=== PATIENT | male | born 1955 | race African-American/Black ===

== ENCOUNTER 2021-10-12 14:06 | Observation (INO) | payer OTHER, SELFPAY ==
[2021-10-12] VITALS (11 sets, daily range): BP systolic 83–176; BP diastolic 55–106; PULSE 62–78; RESP 11–21; TEMP 36.3–36.9; O2SAT 94–100; BMI 21.5
--- NOTE | 2021-10-12 14:30 | DI.CT_ITS ---
Exam(s) CT ABDOMEN PELVIS W EXAM: CT ABDOMEN PELVIS W CLINICAL HISTORY: Left Inguinal hernia, R/O incarceration TECHNIQUE: Imaging Protocol: Axial computed tomography images with coronal and sagittal reformatted images were created and reviewed CONTRAST MATERIAL: Intravenous: Omnipaque 350ml Contrast volume:100 mL Oral: No COMPARISON: No exams were available for comparison FINDINGS: ABDOMEN: Lung Bases: Normal where visualized. Liver: Normal density. No measurable mass. The liver has a lobulated contour suggesting hepatic cirrh osis. The liver measures 18 cm long. Portal, Superior Mesenteric, and Splenic Veins: Unremarkable. Gallbladder and Biliary Tract: There is cholelithiasis present. The common duct measures 8 mm. Pancreas: Normal density, no abnormal calcifications or inflammatory process. Spleen: Normal. Adrenals: No masses seen. Kidneys: Normal size, contour and axis. No radiodense stones or obstructive uropathy. There are tiny hypodensities in the right kidney. They are too small for further characterization but likely reflec t small cysts. Abdominal Aorta: Abdominal portion non-dilated. Atherosclerosis is present. Bowel: There is a left inguinal hernia containing a loop of small bowel. The small bowel proximally is dilated suggesting obstruction. The small bowel distal to the hernia is of normal caliber. The f indings are consistent to of small bowel obstruction. There is mild infiltration in the surrounding fat at the level of the hernia with a small amount of fluid within the hernia sac. Appendix is unrem arkable. Peritoneal Cavity: There is a small amount of perihepatic ascites. No free air. Lymph Nodes: Within normal limits. Bones: Within normal limits for the patient's age. Soft Tissues: There is a small fat containing umbilical hernia. PELVIS: Bladder: Symmetric distention, no gross wall thickening. Reproductive Organs: Unremarkable as visualized. Lymph Nodes: Within normal limits. Bones: Within normal limits for the patient's age. IMPRESSION: 1. There is a left inguinal hernia containing a loop of mid to distal small bowel. There is findings consistent with a small-bowel obstruction with dilatation of the small bowel loops proximal to the h ernia. Mild infiltration of the soft tissues around the hernia sac suggest early or mild strangulati on of the small bowel. 2. Cholelithiasis. No evidence to suggest acute cholecystitis. Mild intra and extrahepatic biliary ductal dilatation without definite stone or pancreatic lesion. MRCP may be considered for further ev aluation. RADIATION DOSE DELIVERED: 684.96mGy.cm Total DLP DATA REPOSITORY: All CT scans at this facility are submitted to the National Radiology Data Registry (NRDR) Dose Index Registry (DIR) with the [employer] (ACR). RADIATION OPTIMIZATION: All CT scans at this facility use at least one of these dose optimization te chniques: automated exposure control; mA and/or kV adjustment per patient size (includes targeted exa ms where dose is matched to clinical indication); or iterative reconstruction.
--- NOTE | 2021-10-12 14:34 | ED.GENADUL_ITS ---
Discharge Plan Disposition Patient Disposition: [facility] INPATIENT Condition: Serious Discharge Details Clinical Impression: Incarcerated left inguinal hernia Admit Date/Time: 10/12/21 20:33 Admit Provider: Ashkan Fregoso Attending Provider: Ashkan Fregoso Primary Care Provider: Dave aMx ED Provider: Leif Brower Discharge Data Discharge Date/Time-TO BE ENTERED AT DEPARTURE: 10/12/21 21:11 Medical Decision Making <Lilian Whitaker NP - Last Filed: 10/12/21 16:17> 65-year-old male presents to the ER accompanied by law enforcement with chief complaint of left lower groin pain and abdominal pain. Patient reports that he was climbing up onto the top bunk this morning when he felt a left inguinal hernia protrude he reports that he has been unable to reduce it. This has happened before and he usually is able to reduce the hernia. He denies any trouble urinating did have a bowel movement after current no blood or hematochezia reported. He does endorse nausea and pain. No vomiting. He denies any recent trauma to the abdomen or falls. Patient has a past medical history of HIV, psoriasis. CBC, CMP, lactate, urinalysis IV morphine and Zofran ordered. CT abdomen pelvis with IV contrast ordered to rule out incarcerated hernia. Patient placed in Trendelenburg position and ice pack placed over the hernia by balance staff staker to attempt self reduction. Will reevaluate approximately 30 minutes. Care is to be handed off to oncoming provider DILLON Redmond pending CT abdomen pelvis and disposition. Lab Data Lab results reviewed: Yes I reviewed the patient's lab results. Labs: Laboratory Tests Range/Units 10/12/21 10/12/21 10/12/21 14:53 14:53 14:53 WBC Cancelled RBC Cancelled Hgb Cancelled Hct Cancelled MCV Cancelled MCH Cancelled MCHC Cancelled RDW Cancelled Plt Count Cancelled MPV Cancelled Immature Gran % Cancelled Neutrophils % Cancelled Band Neutrophils % Cancelled Lymphocytes % Cancelled Atypical Lymphs % Cancelled Monocytes % Cancelled Eosinophils % Cancelled Basophils % Cancelled Metamyelocytes % Cancelled Myelocytes % Cancelled Promyelocytes % Cancelled Other Cells % Cancelled Nucleated RBC % Cancelled Absolute Neutrophils Cancelled Absolute Lymphocytes Cancelled Absolute Monocytes Cancelled Absolute Eosinophils Cancelled Absolute Basophils Cancelled RBC Morphology Cancelled Polychromasia Cancelled Hypochromasia Cancelled Poikilocytosis Cancelled Basophilic Stippling Cancelled Anisocytosis Cancelled Microcytosis Cancelled Macrocytosis Cancelled Spherocytes Cancelled Tear Drop Cells Cancelled Ovalocytes Cancelled Stomatocytes Cancelled [place] Bodies Cancelled [place] Cells/Echinocytes Cancelled Acanthocytes (Spur) Cancelled Schistocytes Cancelled VBG Lactate (0.6-1.4) mmol/L 1.0 Sodium (136-145) mmol/L 143 Potassium (3.5-5.1) mmol/L 3.6 Chloride (98-107) mmol/L 101 Carbon Dioxide (21.0-32.0) mmol/L 30.2 Anion Gap (3-11) mmol/L 11.8 H BUN (7-18) mg/dL 7 Creatinine (0.70-1.30) mg/dL 0.7 Estimated GFR/1.73 m2 (mL/min/1.73m2) >= 60.00 Glucose (74-106) mg/dL 114 H Calcium (8.5-10.1) mg/dL 10.2 H Magnesium (1.8-2.4) mg/dL 2.2 Total Bilirubin (0.2-1.0) mg/dL 0.7 AST (15-37) U/L 40 H ALT (16-63) U/L 36 Alkaline Phosphatase (46-116) U/L 234 H Total Protein (6.4-8.2) g/dL 10.9 H Albumin (3.4-5.0) g/dL 4.6 Range/Units 10/12/21 15:05 WBC 10.29 RBC 5.42 Hgb 14.7 Hct 44.8 MCV 83 MCH 27.1 MCHC 32.8 RDW 16.4 H Plt Count 211 MPV 11.6 H Immature Gran % 0.4 Neutrophils % 65.0 Band Neutrophils % Lymphocytes % 26.1 Atypical Lymphs % Monocytes % 7.1 Eosinophils % 1.0 Basophils % 0.4 Metamyelocytes % Myelocytes % Promyelocytes % Other Cells % Nucleated RBC % 0.0 Absolute Neutrophils 6.69 Absolute Lymphocytes 2.69 Absolute Monocytes 0.73 Absolute Eosinophils 0.10 Absolute Basophils 0.04 RBC Morphology Polychromasia Hypochromasia Poikilocytosis Basophilic Stippling Anisocytosis Microcytosis Macrocytosis Spherocytes Tear Drop Cells Ovalocytes Stomatocytes [place] Bodies [place] Cells/Echinocytes Acanthocytes (Spur) Schistocytes VBG Lactate (0.6-1.4) mmol/L Sodium (136-145) mmol/L Potassium (3.5-5.1) mmol/L Chloride (98-107) mmol/L Carbon Dioxide (21.0-32.0) mmol/L Anion Gap (3-11) mmol/L BUN (7-18) mg/dL Creatinine (0.70-1.30) mg/dL Estimated GFR/1.73 m2 (mL/min/1.73m2) Glucose (74-106) mg/dL Calcium (8.5-10.1) mg/dL Magnesium (1.8-2.4) mg/dL Total Bilirubin (0.2-1.0) mg/dL AST (15-37) U/L ALT (16-63) U/L Alkaline Phosphatase (46-116) U/L Total Protein (6.4-8.2) g/dL Albumin (3.4-5.0) g/dL HPI <Lilian Whitaker NP - Last Filed: 10/12/21 16:17> General Mode of arrival: wheelchair . Date/Time Provider Initiated Documentation: 10/12/21 14:11 . Limitations to Documentation: no limitations . Information obtained by: patient, police (Pt arrives in police custody) and RN notes reviewed . HPI Narrative: 65-year-old male presents to the ER accompanied by law enforcement with chief complaint of left lower groin pain and abdominal pain. Patient reports that he was climbing up onto the top bunk this morning when he felt a left inguinal hernia protrude he reports that he has been unable to reduce it. This has happened before and he usually is able to reduce the hernia. He denies any trouble urinating did have a bowel movement after current no blood or hematochezia reported. He does endorse nausea and pain. No vomiting. He denies any recent trauma to the abdomen or falls. Patient has a past medical history of HIV, psoriasis. Related Data Home Medications Medication Instructions Recorded Confirmed emtricitabine 200 mg-rilpivirine 1 tab PO DAILY 10/12/21 10/12/21 25 mg-tenofovir alafenam 25 mg tablet (Odefsey) Allergies Allergy/AdvReac Type Severity Reaction Status Date / Time Penicillins Allergy Unverified 10/12/21 14:18 General Stated Complaint: Abd Prob YOON: 3 <DILLON Redmond - Last Filed: 10/12/21 19:19> HPI Narrative: 65-year-old male presents to the ER accompanied by law enforcement with chief complaint of left lower groin pain and abdominal pain. Patient reports that he was climbing up onto the top bunk this morning when he felt a left inguinal hernia protrude he reports that he has been unable to reduce it. This has happened before and he usually is able to reduce the hernia. He denies any trouble urinating did have a bowel movement after current no blood or hematochezia reported. He does endorse nausea and pain. No vomiting. He denies any recent trauma to the abdomen or falls. Patient has a past medical history of HIV, psoriasis. LB: Accepted from [facility] pending CT scan and lab and manual reduction of inguinal hernia I initially entered the room and administered IV analgesia and the patient requested an attempt to reduce hernia himself as he is done in the past He was unsuccessful and his pain returned, therefore additional analgesia was ordered Patient subsequently requested that male provider for the remainder of his assessment and therefore care was transferred to Dr. Leif Brower at this time, please see his documentation Review of Systems <Lilian Whitaker NP - Last Filed: 10/12/21 16:17> All systems reviewed & are unremarkable except as noted in HPI and below Constitutional Constitutional: Reports as per HPI, Denies chills and Denies fever(s) Cardiovascular Cardiovascular: Denies chest pain and Denies dyspnea Respiratory Respiratory: Denies dyspnea Gastrointestinal Gastrointestinal: Reports abdominal pain, Denies melena, Denies hematochezia, Denies change in bowel habits, Denies diarrhea, Reports nausea, Denies vomiting and Reports other (Inguinal left groin mass palpated tender with palpation.) Genitourinary Genitourinary: Reports as per HPI, Reports genital pain and Denies dysuria PFS <Lilian Whitaker NP - Last Filed: 10/12/21 16:17> All Active Problems (Updated 10/13/21 @ 19:47 by Fernando Pappas MD) History of intravenous drug abuse (Acute) Aortic valve cusp abnormality (Acute) Narrow complex tachycardia (Acute) Elevated troponin (Acute) History of ETOH abuse (Acute) Smoker unmotivated to quit (Acute) Atherosclerosis (Acute) Methadone maintenance therapy patient (Acute) Edentulous (Acute) Umbilical hernia (Acute) Gallstones (Acute) Cirrhosis of liver (Acute) Incarcerated left inguinal hernia (Acute) Medical History HIV (human immunodeficiency virus infection) Social History Smoking/Tobacco Use Status: Current every day Tobacco Type: cigarettes Smoking risk assessment performed?: Yes Alcohol Intake: former Drug use: Never Substance use type: does not use Exam <Lilian Whitaker NP - Last Filed: 10/12/21 16:17> Narrative Exam Narrative: Constitutional: Alert and oriented x3. Appears stated age. Normal body habitus. Head: Normocephalic, no trauma. Eyes: Pupils PERRL, Red reflex noted, EOM's intact. Eyelids symmetrical without lesions, discharge, or swelling. ENT: Bilateral TM's WNL, External ear normal to inspection, no mastoid TTP, swelling, or erythema, Nasal turbinates WNL, no nasal discharge. Normal dentition, Posterior pharynx WNL, no exudate. Chest: RRR, Normal S1, S2, distal pulses intact. Resp: Lungs clear to auscultation bilaterally, no wheezes, rales, or rhonchi. Abdomen: Soft, non-distended, Tenderness to LLQ : See below Skin: No suspicious rashes or lesions. Capillary refill less than 2 sec. Neurologic: Cranial nerves II-XII intact. Alert and oriented x 3. Motor: No deficits noted. Sensory: Intact bilaterally all 4 extremities. Reflexes: DTR's intact bilaterally.. Hematologic/Lymphatic: No ecchymosis, no lymphadenopathy. GI Inspection: normal to inspection, no abdominal wall ecchymosis, non-distended, no large pannus and no obesity Palpation: soft, no guarding and hernia direct inguinal on the left Male General Exam: Yes hernia (Large left inguinal hernia, hard and tender with palpation) and Yes tenderness Course <Lilian Whitaker NP - Last Filed: 10/12/21 16:17> Vital Signs Vital signs: Vital Signs Temperature 36.6 C 10/12/21 14:10 Pulse 62 10/12/21 14:10 Respiratory Rate 18 10/12/21 14:10 Blood Pressure 176/106 H 10/12/21 14:10 Pulse Oximetry 100 10/12/21 14:10 Temperature 36.6 C 10/12/21 14:10 Temperature Source Temporal Artery Scan 10/12/21 14:10 Pulse 62 10/12/21 14:10 Respiratory Rate 18 10/12/21 14:10 Respiratory Effort Non-Labored 10/12/21 14:20 Blood Pressure 176/106 H 10/12/21 14:10 Blood Pressure Position Sitting 10/12/21 14:10 Pulse Oximetry 100 10/12/21 14:10 Oxygen Delivery Method Room Air 10/12/21 14:10 Oxygen Flow Rate 0 10/12/21 14:10 Pain Level 10 10/12/21 14:29 Sign Out <Lilian Whitaker NP - Last Filed: 10/12/21 16:17> Sign Out Data: Sign Out Comment: Left Inguinal Hernia. CT ordered to Rule out incarceration. [facility] a [facility] Law enforcement at . Given Morphine 4mg IV and Zofran 4mg IV Last updated by Lilian Whitaker NP at 10/12/21 15:33
[2021-10-12] MEDS: Ondansetron 4 MG/2 ML VIAL IVP (15:08)
[2021-10-12] MEDS: MORPHine 10 MG/ML VIAL 4 MG IVP (15:08)
[2021-10-12 15:16] LABS: Abs Immature Grans 0.04 10^3/uL (0.0-0.06); Absolute Basophil Count 0.04 10^3/uL (0.0-0.2); Absolute Lymphocyte Count 2.69 10^3/uL (1.2-3.4); Absolute Monocyte Count 0.73 10^3/uL (0.1-0.8); Absolute Neutrophil Count 6.69 10^3/uL (1.2-6.7); Basophils % 0.4; HCT 44.8 % (40.0-50.0); HGB 14.7 g/dL (13.5-17.5); Immature Grans % 0.4; Lymphocytes % 26.1; MCH 27.1 pg (27.0-33.0); MCHC 32.8 % (32.0-36.0); MCV 83 fL (80-95); MPV 11.6 fL (8.0-11.0); Monocytes % 7.1; Platelet Count 211 10^3/uL (130-400); RBC 5.42 10^6/uL (4.36-5.78); RDW 16.4 % (11.8-14.1); RDW-SD 48.9 fL; WBC 10.29 10^3/uL (4.4-10.8)
[2021-10-12 15:27] LABS: ALT 36 U/L (16-63); AST 40 U/L (15-37); Albumin 4.6 g/dL (3.4-5.0); Alkaline Phosphatase 234 U/L (46-116); Anion Gap 11.8 mmol/L (3-11); BUN 7 mg/dL (7-18); Bilirubin, Total 0.7 mg/dL (0.2-1.0); CO2 30.2 mmol/L (21.0-32.0); CREATININE 0.7 mg/dL (0.70-1.30); Calcium 10.2 mg/dL (8.5-10.1); Chloride 101 mmol/L (98-107); Glucose 114 mg/dL (74-106); Magnesium 2.2 mg/dL (1.8-2.4); Potassium 3.6 mmol/L (3.5-5.1); Sodium 143 mmol/L (136-145); Total Protein 10.9 g/dL (6.4-8.2)
[2021-10-12] MEDS: HYDROmorphone 2 MG/ML VIAL IVP ×2 (15:44→16:00)
[2021-10-12] MEDS: Omnipaque 350 MG/ML 100 ML BTL IJ (16:52)
[2021-10-12] MEDS: Normal Saline Flush 10 ML SYR IVP (16:53)
[2021-10-12 16:55] LABS: Bilirubin Negative (Negative); Blood Negative (Negative); Clarity Cloudy (Clear); Glucose Negative (Negative); Ketones Negative (Negative); Leukocyte Esterase Negative (Negative); Nitrite Negative (Negative); Specific Gravity 1.025 (1.005-1.025); Urobilinogen 0.2 EU/dL (Up TO 0.2); pH 7.5 (5-8)
--- NOTE | 2021-10-12 17:38 | DI.VRAD_ITS ---
PROCEDURE INFORMATION: Exam: CT Abdomen And Pelvis With Contrast Exam date and time: 10/12/2021 4:40 PM Age: 65 years old Clinical indication: Other: Left inguinal hernia R/O incarceration TECHNIQUE: Imaging protocol: Computed tomography of the abdomen and pelvis with contrast. Radiation optimization: All CT scans at this facility use at least one of these dose optimization techniques: automated exposure control; mA and/or kV adjustment per patient size (includes targeted exams where dose is matched to clinical indication); or iterative reconstruction. Contrast material: OMNIPAQUE 350; Contrast volume: 100 ml; Contrast route: INTRAVENOUS (IV); COMPARISON: No relevant prior studies available. FINDINGS: Lungs: There are regions of mild scarring/atelectasis within the lung bases. Liver: The liver serosal surface appears lobular in some regions suggesting cirrhosis. No focal liver lesions are identified. Gallbladder and bile ducts: There are 2 gallstones in the region of the gallbladder neck and cystic duct, the larger measuring 5 mm. There is mild intra and extrahepatic biliary ductal dilatation to the level of the ampulla, with the common bile duct measuring up to 9 mm diameter and mild central intrahepatic biliary ductal dilatation. There is no defined distal common bile duct stone or lesion. Pancreas: The pancreas is moderately atrophic but appears otherwise unremarkable without focal lesion or evidence of acute inflammation. Spleen: Normal. No splenomegaly. Adrenal glands: Normal. No mass. Kidneys and ureters: There appears to be some degree of malrotation the kidney. There are multiple subcentimeter low-dense renal lesions which are too small to characterize but likely represent benign cysts. No renal or ureteral stones are identified. There is no hydronephrosis or hydroureter. Stomach and bowel: Findings suggest possible mild edematous wall thickening of the lower rectum. There is mild dilatation of numerous loops small bowel proximal to the hernia sac measuring up to 2.8 cm diameter, and the loops of small bowel distal to the hernia sac are collapsed, consistent with partial small bowel obstruction at the level of the hernia. Appendix: No evidence of appendicitis. Intraperitoneal space: There is tiny amount ascites in the right upper quadrant of the abdomen. There is no free intraperitoneal air. Vasculature: The aorta and iliac arteries demonstrate moderate atherosclerotic calcification without aneurysm formation. Lymph nodes: Unremarkable. No enlarged lymph nodes. Urinary bladder: No bladder stones are identified. Reproductive: Unremarkable as visualized. Bones/joints: There is multilevel moderate facet arthrosis the lower lumbar spine as well as multilevel mild spondylosis. No acute fractures are. Soft tissues: There is a 2.6 x 4.0 x 5.5 cm left inguinal hernia which contains fat as well as a short loop of mid-distal small bowel. There is a small amount of fluid and mild fat stranding around the small bowel loop within the hernia sac and findings suggest mild wall thickening of this loop, which is suggestive of mild/early strangulation. Other findings: There is a 1.5 x 1.0 cm fat containing umbilical hernia. IMPRESSION: 1. Left inguinal hernia containing a short loop of mid-distal small bowel, as described above. There are findings suggesting early/mild strangulation of the small bowel loop within the hernia sac. There is also mild dilatation of numerous small bowel loops proximal to the hernia consistent with partial small bowel obstruction at the level of the hernia. 2. Gallstones. No clear evidence for acute cholecystitis. 3. Mild intra and extrahepatic biliary ductal dilatation to the level of the ampulla. No distal common bile duct stone or lesion is identified. Findings could reflect mild ampullary stenosis or sphincter of Oddi dysfunction. 4. Cannot exclude mild proctitis. Recommend clinical correlation. Findings were discussed with Dr. Brower at 10/12/2021 5:35 PM EDT. Dictated and Authenticated by: Arian Baird MD. Ordering:TEO Quintana MD
--- NOTE | 2021-10-12 18:03 | W.EDPROG ---
Date of service: 10/12/21 Time of Service: 18:03 Medical Decision Making 1800 --care signed out by TESHA Whitaker with plan to follow-up on CT and attempt to reduce hernia. CT of the abdomen pelvis was interpreted by radiology: IMPRESSION: 1. Left inguinal hernia containing a short loop of mid-distal small bowel, as described above. There are findings suggesting early/mild strangulation of the small bowel loop within the hernia sac. There is also mild dilatation of numerous small bowel loops proximal to the hernia consistent with partial small bowel obstruction at the level of the hernia. 2. Gallstones. No clear evidence for acute cholecystitis. 3. Mild intra and extrahepatic biliary ductal dilatation to the level of the ampulla. No distal common bile duct stone or lesion is identified. Findings could reflect mild ampullary stenosis or sphincter of Oddi dysfunction. 4. Cannot exclude mild proctitis. Recommend clinical correlation. Labs reviewed and nondiagnostic Patient has been unable to reduce the hernia himself. I attempted to reduce the hernia by applying direct manual pressure for prolonged period of time. Unable to reduce. 180 --I spoke with the general surgeon on-call, Dr. Walter, discussed ED presentation and course including diagnostic imaging results. He recommends placing the patient in Trendelenburg, applying ice and he will be in to evaluate the patient. -- Patient was seen by the surgeon with plan for the OR reduction. Sign Out Sign Out Data: Sign Out Comment: Left Inguinal Hernia. CT ordered to Rule out incarceration. Patient is a inmate at [facility], [employer] enforcement at [employer]. Given Morphine 4mg IV and Zofran 4mg IV Last updated by Lilian Whitaker NP at 10/12/21 15:33 Discharge Plan Disposition Patient Disposition: [facility] INPATIENT Condition: Serious Discharge Details Clinical Impression: Incarcerated left inguinal hernia Primary Care Provider: Dave Max ED Provider: Leif Brower Home Meds and New Rx's Prescriptions: No Action Odefsey 200-25-25 mg Tablet 1 tab PO DAILY Rx Instructions: must administer with a meal/food
--- NOTE | 2021-10-12 19:48 | ANES.PREOP_ITS ---
General Info Date of Service Date Performed: 10/12/21 Height: 5 ft 10 in Weight: 68.039 kg Body Mass Index (BMI): 21.5 Meds Allergies and Home Medications Allergies Allergy/AdvReac Type Severity Reaction Status Date / Time Penicillins Allergy Unverified 10/12/21 14:18 Home Medication Medication Instructions Recorded emtricitabine 200 mg-rilpivirine 1 tab PO DAILY 10/12/21 25 mg-tenofovir alafenam 25 mg tablet ([place]) Current Visit Medications: Current Medications Generic Name Dose Route Start Last Admin Trade Name Freq PRN Reason Stop Dose Admin Sodium Chloride 500 mls @ 0 mls/hr 10/12/21 14:30 Saline 500ml Bag IV PRN PRN As Directed IV Miscellaneous Supplies 1 each 10/12/21 14:30 Iv Access IV DIRECTED JOEL Iohexol 100 ml 10/12/21 17:00 10/12/21 16:52 Omnipaque 350 Mg/Ml 100 Ml Btl IJ 11/11/21 23:59 100 ml DIRECTED JOEL Administration Sodium Chloride 0 ml 10/12/21 14:30 10/12/21 16:53 Normal Saline Flush 10 Ml Syr IVP 10 ml PRN PRN Administration Sodium Chloride 50 ml 10/12/21 17:00 10/12/21 16:53 Normal Saline 250 Ml Bag IJ 50 ml DIRECTED JOEL Administration PFSH Active Problems Active Problems: Problem Status Onset Code Incarcerated left inguinal hernia K40.30 Medical History Medical History HIV (human immunodeficiency virus infection) Tobacco Smoking/Tobacco Use Status: Current every day Tobacco Type: cigarettes Alcohol Alcohol Intake: former Substance Use Substance use: Never Substance use type: does not use Vital Signs and Lab Results Vital Signs Most Recent Vital Signs in EMR: Most Recent Vital Signs Temp Pulse Resp BP Pulse Ox 36.8 C 70 18 159/86 H 99 10/12/21 18:47 10/12/21 18:47 10/12/21 18:47 10/12/21 18:47 10/12/21 18:47 Lab Results Result Diagrams: 10/12/21 15:05 10/12/21 14:53 Blood Type / Crossmatch: No Data to Display Complete Blood Count: White Blood Count 10.29 10^3/uL (4.4-10.8) 10/12/21 15:05 Red Blood Count 5.42 10^6/uL (4.36-5.78) 10/12/21 15:05 Hemoglobin 14.7 g/dL (13.5-17.5) 10/12/21 15:05 Hematocrit 44.8 % (40.0-50.0) 10/12/21 15:05 Platelet Count 211 10^3/uL (130-400) 10/12/21 15:05 Venous Blood Lactate 1.0 mmol/L (0.6-1.4) 10/12/21 14:53 Complete Metabolic Panel: Sodium Level 143 mmol/L (136-145) 10/12/21 14:53 Potassium Level 3.6 mmol/L (3.5-5.1) 10/12/21 14:53 Chloride Level 101 mmol/L (98-107) 10/12/21 14:53 Carbon Dioxide Level 30.2 mmol/L (21.0-32.0) 10/12/21 14:53 Blood Urea Nitrogen 7 mg/dL (7-18) 10/12/21 14:53 Creatinine 0.7 mg/dL (0.70-1.30) 10/12/21 14:53 Estimated GFR/1.73 m2 >= 60.00 (mL/min/1.73m2) 10/12/21 14:53 Magnesium Level 2.2 mg/dL (1.8-2.4) 10/12/21 14:53 Calcium Level 10.2 mg/dL (8.5-10.1) H 10/12/21 14:53 Albumin 4.6 g/dL (3.4-5.0) 10/12/21 14:53 Glucose Level 114 mg/dL (74-106) H 10/12/21 14:53 Liver Function Panel: Alanine Aminotransferase (ALT/SGPT) 36 U/L (16-63) 10/12/21 14: 53 Aspartate Amino Transf (AST/SGOT) 40 U/L (15-37) H 10/12/21 14: 53 Coagulation Panel: No Data to Display Cardiac Panel: No Data to Display Arterial Blood Gas: No Data to Display Venous Blood Gas: No Data to Display Pancreas Panel: No Data to Display Thyroid Panel: No Data to Display Infectious Disease: No Data to Display Blood Cultures: No Data to Display Toxicology Panel: No Data to Display Anesthesia Assessment and Plan Anesthesia History Personal History: No History of Anesthesia Complications Family History: No Family History of Anesthesia Complications Exercise Tolerance Exercise Tolerance: Metabolic Equivalents>4 Pertinent Negatives Pertinent Negatives: No Symptoms of GERD, No Major Cardiovascular Symptoms or Complaints, No Major Pulmonary Symptoms or Complaints and No History of CVA/TIA Cardiac & Pulmonary Exam Cardiac Exam: Normal S1/S2 Heart Sounds Pulmonary Exam: Clear Bilateral Breath Sounds Implantable Cardiac Device Does patient have a Pacemaker or an ICD?: No Airway Exam Known Difficult Airway: No Mallampati Class: 2 Mouth Opening: Normal (> 3cm) Thyromental Distance: Greater than 3 cm Neck Range of Motion: Full ROM Neck Circumference: Normal Teeth Condition: Removable Dentures/Plates Upper and Edentulous (lower) ASA Classification ASA Score: ASA 2 Emergency Case?: Yes NPO Status NPO Status: NPO Clears >2 hours, Solids >8 hours (noon) Anesthesia Plan Resuscitation Status: Full Code Anesthesia Technique: General Anesthesia Airway Planned: Endotracheal Tube Pain Management: Surgeon and patient request nerve block (TAP block for postope rative pain. Patient reports high tolerance to pain medicines. ) Monitors Used: Standard Monitors Preoperative Comments:: Patient reported liver dysfunction, however, then showed his legs having some discoloration and what appeared to be venous wounds. Patient wearing LAST hose. Patient denies heart problems, reports sleeping flat.
[2021-10-12] MEDS: HYDROmorphone 2 MG/ML VIAL (20:01)
[2021-10-12 20:04] LABS: Source Nasal/Nares
--- NOTE | 2021-10-12 20:19 | W.SURGCON ---
Date of service: 10/12/21 Time of Service: 20:00 Assessment and Plan Assessment and plan (1) Incarcerated left inguinal hernia: Status: Acute Assessment and plan: 65 yo man with incarcerated left inguinal hernia causing partial SBO and likely to become strangulated if not reduced. Operative reduction and then operative repair is indicated. I did d/w patient the risk of needing a small bowel resection if the bowel is not viable. I also talked with him about the low risk, but possiblity of recurrence, chronic pain and wound/mesh infections. He accepts these small risks and wishes to proceed with repair. Plan: Open inguinal hernia repair, possible bowel resection History of Present Illness Narrative: 65 yo man with hx of left groin hernia for quite some time presents from [facility] reporting 3 days of persistent and worsening groin pain. The hernia, which is usually able to be pushed back in, is stuck out. The pt usually pushes on it, but this time is unable to do get it back in. He denies nausea or vomiting. Just pain. He denies any prior surgery or trauma to the left groin area or abdomen. No significant medical history other than treated HIV. Daily smoker. [facility] Active Problems (Updated 10/12/21 @ 19:46 by Leif Brower MD) Incarcerated left inguinal hernia (Acute) Medical History HIV (human immunodeficiency virus infection) Social History Smoking/Tobacco Use Status: Current every day Tobacco Type: cigarettes Smoking risk assessment performed?: Yes Alcohol Intake: former Drug use: Never Substance use type: does not use Do you feel safe at home: Yes Do you feel safe in your relationship?: Yes Exam Narrative Exam Narrative: Gen: Nontoxic and comfortable and interactive Neuro: AxOx3 Psych: Appropriate mood and affect, good insight and understanding Abdomen: Soft, nondistended and nontender. Left groin examined and a painful, but soft bulge is present. It is not reducible. Results Last Vital Signs Temp 98.2 F 10/12/21 18:47 Pulse 70 10/12/21 18:47 Resp 18 10/12/21 18:47 BP 159/86 H 10/12/21 18:47 Pulse Ox 99 10/12/21 18:47 Labs Result diagrams: 10/12/21 15:05 10/12/21 14:53 Labs: Laboratory Results - last 24 hr 10/12/21 10/12/21 10/12/21 14:53 14:53 14:53 WBC Cancelled RBC Cancelled Hgb Cancelled Hct Cancelled MCV Cancelled MCH Cancelled MCHC Cancelled RDW Cancelled Plt Count Cancelled MPV Cancelled Immature Gran % Cancelled Neutrophils % Cancelled Band Neutrophils % Cancelled Lymphocytes % Cancelled Atypical Lymphs % Cancelled Monocytes % Cancelled Eosinophils % Cancelled Basophils % Cancelled Metamyelocytes % Cancelled Myelocytes % Cancelled Promyelocytes % Cancelled Other Cells % Cancelled Nucleated RBC % Cancelled Absolute Neutrophils Cancelled Absolute Lymphocytes Cancelled Absolute Monocytes Cancelled Absolute Eosinophils Cancelled Absolute Basophils Cancelled RBC Morphology Cancelled Polychromasia Cancelled Hypochromasia Cancelled Poikilocytosis Cancelled Basophilic Stippling Cancelled Anisocytosis Cancelled Microcytosis Cancelled Macrocytosis Cancelled Spherocytes Cancelled Tear Drop Cells Cancelled Ovalocytes Cancelled Stomatocytes Cancelled [place] Bodies Cancelled [place] Cells/Echinocytes Cancelled Acanthocytes (Spur) Cancelled Schistocytes Cancelled VBG Lactate 1.0 Sodium 143 Potassium 3.6 Chloride 101 Carbon Dioxide 30.2 Anion Gap 11.8 H BUN 7 Creatinine 0.7 Estimated GFR/1.73 m2 >= 60.00 Glucose 114 H Calcium 10.2 H Magnesium 2.2 Total Bilirubin 0.7 AST 40 H ALT 36 Alkaline Phosphatase 234 H Total Protein 10.9 H Albumin 4.6 Urine Color Urine Clarity Urine pH Ur Specific [place] Urine Protein Urine Ketones Urine Blood Urine Nitrite Urine Bilirubin Urine Urobilinogen Ur Leukocyte Esterase Urine Glucose COVID-19 Source 10/12/21 10/12/21 10/12/21 15:05 16:50 20:00 WBC 10.29 RBC 5.42 Hgb 14.7 Hct 44.8 MCV 83 MCH 27.1 MCHC 32.8 RDW 16.4 H Plt Count 211 MPV 11.6 H Immature Gran % 0.4 Neutrophils % 65.0 Band Neutrophils % Lymphocytes % 26.1 Atypical Lymphs % Monocytes % 7.1 Eosinophils % 1.0 Basophils % 0.4 Metamyelocytes % Myelocytes % Promyelocytes % Other Cells % Nucleated RBC % 0.0 Absolute Neutrophils 6.69 Absolute Lymphocytes 2.69 Absolute Monocytes 0.73 Absolute Eosinophils 0.10 Absolute Basophils 0.04 RBC Morphology Polychromasia Hypochromasia Poikilocytosis Basophilic Stippling Anisocytosis Microcytosis Macrocytosis Spherocytes Tear Drop Cells Ovalocytes Stomatocytes [place] Bodies Spearman Cells/Echinocytes Acanthocytes (Spur) Schistocytes VBG Lactate Sodium Potassium Chloride Carbon Dioxide Anion Gap BUN Creatinine Estimated GFR/1.73 m2 Glucose Calcium Magnesium Total Bilirubin AST ALT Alkaline Phosphatase Total Protein Albumin Urine Color Yellow Urine Clarity Cloudy Urine pH 7.5 Ur Specific [place] 1.025 Urine Protein Negative Urine Ketones Negative Urine Blood Negative Urine Nitrite Negative Urine Bilirubin Negative Urine Urobilinogen 0.2 Ur Leukocyte Esterase Negative Urine Glucose Negative COVID-19 Source Nasal/Nares
[2021-10-12 20:56] LABS: COVID-19 PCR Negative (Negative)
[2021-10-12] MEDS: Lactated Ringers 1,000 ML 30 ML IV (21:25)
--- NOTE | 2021-10-12 22:10 | W.ANESNERVE ---
Nerve Block Single Injection Procedure Date and Time Date Performed: 10/12/21 Procedure Start: 21:39 Location Where Procedure Performed Procedure Location: Operating Room Procedure Stop: 21:44 Reason Performed: Postoperative Analgesia Requesting Provider: Ashkan Fregoso Timeout Performed Timeout Performed: Yes Monitoring Used ECG, Blood Pressure and SpO2 Sterility Sterility: Hand Hygiene, Surgical Cap, Surgical Mask, Sterile Gloves and Chlorhexidine Sedation Given During Procedure Sedation Given (Indicate Dose Given): No Sedation given Patient Mental Status Patient Mental Status: Performed under general anesthesia Nerve Block 1st Nerve Block: Laterality: Left Block Type: TAP Unilateral Needle / Catheter Used: 100mm SonoPlex II Local Anesthetic Bolus (Indicate Dose Given): Injected in 3-5ml increments after negative blood aspiration and Bupivacaine 0.25% Dose:: 20 Additives (Indicate Dose Given): Precedex Dose:: 65 mcg Ultrasound: Sterile probe cover and gel used Ultrasound Image Saved?: Yes Nerve Stimulator: Not Used Paresthesia: None Procedure Tolerated: No Complications and Patient tolerated well Procedure Outcome: Successful Performed By: Markell Oconnell
[2021-10-12] MEDS: Bupivacaine 0.5% Pres-Free 30 ML VIAL (22:34)
--- NOTE | 2021-10-12 23:45 | W.PM.OP ---
Date of service: 10/12/21 Time of Service: 23:48 Operative Note Operative Note PRE-OP DIAGNOSIS: Incarcerated left inguinal hernia POST-OP DIAGNOSIS: same PROCEDURE: Left inguinal hernia repair Refer to Anesthesia Record ESTIMATED BLOOD LOSS: 5 Findings: Bowel viable. Indirect defect repaired with mesh via anterior approach. Procedure Description: Written consent was obtained from the patient who was in agreement with the risks, the indications and the benefits of the procedure. He was taken to the operating room and laid supine on the operating room table where anesthesia was administered and he tolerated this well. He did seem to have some runs of rapid atrial fibrillation after receiving anesthesia but his blood pressure remained stable. Anesthesia performed TAP block (see their procedure note for details). The abdomen was prepped and draped in sterile fashion. A timeout was performed. When we were all in agreement we began the procedure. I made a curvilinear incision and dissected down using a combination of blunt and sharp dissection. I opened the external oblique sharply. The hernia sac and bowel were from the cord structures and the bowel was inspected and deemed viable. I was able to reduce it back into the peritoneal cavity, The defect was noted to be an indirect defect with the floor of the inguinal canal being normal. In usual fashion I laid a mesh on the floor of inguinal canal. I sutured this medially to the pubic tubercle ensuring greater than 1 cm overlap of the mesh medial and inferior. I sutured the inferior edge of the mesh to the shelving edge. Along the conjoined tendon I placed a couple of interrupted sutures. I then refashioned a new internal ring using the tails of the mesh and ensured it was not too tight around the cord structures. I ensured the testicle returned back into the scrotal sac. There is no visible entrapment of any nerves. Hemostasis was excellent. I closed the external oblique with running Vicryl. Interrupted Vicryl sutures were placed subcutaneously and the skin was then closed with running Vicryl. Skin glue was placed on top. The patient tolerated the procedure well. All counts were correct. Hemostasis remained excellent. The testicles were present bilateral at the end of the procedure. The patient was then taken to the PACU in hemodynamically stable condition. The atrial fibrillation was gone and the patient's heart rate and blood pressure were all normal.
[2021-10-13] VITALS (16 sets, daily range): BP systolic 157–181; BP diastolic 72–94; PULSE 68–102; RESP 16–22; TEMP 36.3–37.4; O2SAT 93–99
--- NOTE | 2021-10-13 | DI.US_ITS ---
APPROVED REPORT EXAM: Comprehensive 2D, Doppler, and color-flow Echocardiogram Patient Location: In-Patient Room/Bed: 208 Director Digital Sales: Evelyn Mtz RDCS (AE) Indications: Perioperative PAF, Other Information Study Quality: Adequate Conclusion Left Ventricle : The left ventricle is normal size. The left ventricular ejection fraction is within the normal range. There is normal left ventricular wall thickness. There is normal LV segmental wall motion. LVEF is 58%. Right Ventricle : The right ventricle is normal size. The right ventricular systolic function is norm al. The RVSP is 24.6mmHg. Atria : The left atrium size is normal. The right atrium size is normal. Aortic Valve : The aortic valve is normal in structure. Aortic valve is trileaflet. No aortic regurgi tation is present. There is no aortic valvular stenosis. Thickening of the aortic valve leaflet (most clearly seen on the noncoronary cusp) differential diagnosis includes vegetation, calcification, thr ombus, other. Great Vessels : The aortic root is normal in size. The ascending aorta is normal in size. IVC is norm al in size and collapses >50% with inspiration. There is no prior study for comparison. Further imaging such as OSIEL or cardiac CT could help better delineate the valvular structure. Wall motion Left Ventricle The left ventricle is normal size. The left ventricular ejection fraction is within the normal range. There is normal left ventricular wall thickness. There is normal LV segmental wall motion. There is no ventricular septal defect visualized. LVEF is 58%. Right Ventricle The right ventricle is normal size. The right ventricular systolic function is normal. The RVSP is 24 .6mmHg. Atria The left atrium size is normal. The right atrium size is normal. The interatrial septum is intact wit h no evidence for an atrial septal defect. Aortic Valve The aortic valve is normal in structure. Aortic valve is trileaflet. There is no aortic valvular sten osis. No aortic regurgitation is present. Thickening of the aortic valve leaflet (most clearly seen o n the noncoronary cusp) Differential diagnosis includes vegetation, calcification, thrombus, other. Mitral Valve The mitral valve is normal in structure. No evidence of mitral valve stenosis. Mild mitral regurgitat ion. Tricuspid Valve The tricuspid valve is normal in structure. There is no tricuspid valve stenosis. Trace tricuspid reg urgitation. Pulmonic Valve The pulmonary valve is normal in structure. There is no pulmonic valvular stenosis. There is no pulmo tiffany valvular regurgitation. Great Vessels The aortic root is normal in size. The ascending aorta is normal in size. IVC is normal in size and c ollapses >50% with inspiration. Pericardium There is no pericardial effusion. 2D Dimensions IVSD d PLAX 0.85 cm M: 0.6-1.2 LV Vol A2C d MOD 82.9 mL LVPW d PLAX 0.89 cm M: 0.6 - 1.2 LV Vol A4C d MOD 111.7 mL LVID d PLAX 5.59 cm M: 4.2 - 5.8 LA vol/ BSA A2C s A-L 24.1 mL/m2 LVDs 3.90 cm M: 2.5 - 4.0 LA vol/ BSA A4C s A-L 21.3 mL/m2 Ao Root d 3.12 cm M: 3.1 - 3.7 LA Vol/ BSA Biplane s A-L 23.1 mL/m2 RA Area A4C 13.06 cm2 LA Area A4C s MOD 14.60 cm2 RA Vol/ BSA A4C s A-L 15.6 mL/m2 LA Area A2C s MOD 15.77 cm2 Ao Asc Diam d 3.45 cm M: 2.6 - 3.4 LV EF A4C MOD 57.2 % LV EF Teichholz 56.5 % LV EF A2C MOD 58.5 % LVEF (Welsh's) 55.99 % M: 52 - 72 LV EF Biplane MOD 56.0 % LV Volume 74.75 mL M: 62 - 150 SV 54.31 mL LV Volume Index 40.62 mL/m2 M: 34 - 74 SV Index 29.40 mL/m2 LV Vol Biplane MOD 97.0 mL FS 29.90 % M-Mode TAPSE 2.42 cm (M/F) >1.7 LV Diastology MV E' medial 0.078 (>0.07 m/s) E/A Ratio 0.7 LV E/e MED 6.30 (<14) MV E Vmax 0.50 (0.4-1.3 m/s) MV E' lateral 0.112 (>0.1 m/s) MV A Vmax 0.70 (0.4-1.3 m/s) LV E/e LAT 4.40 (<14) MV E/A Ratio 0.67 MV E/E' medial 6.34 MV E/E' lateral 4.41 Aortic Valve LVOT Area 3.26 cm2 AoV Area Vmax 2.82 cm2 LVOT Vmax 0.93 m/s AoV Area/ BSA (Vmax) 1.53 cm2/m2 LVOT Mean Raphael. 0.59 m/s JOHNATHAN Mean Raphael. 2.58 cm2 LVOT Peak Grad 3.5 mmHg JOHNATHAN Mean Raphael. Index 1.40 cm2/m2 LVOT Mean Grad 1.6 mmHg LVOT VTI 0.153 m LVOT Diam s 2.00 cm AoV Vmax 1.08 m/s Velocity Ratio 0.86 AoV Mean Raphael. 0.74 m/s AoV Peak Grad 4.6 mmHg LVOT SV 50.03 mL AoV Mean Grad 2.6 mmHg AoV VTI 0.181 m AoV Area VTI 2.76 cm2 AoV Area/ BSA (VTI) 1.49 cm/m2 Mitral Valve MV DT 361 (160-240 msec) MV PHT 105 msec MV Area PHT 2.10 cm2 MV VTI 0.164 m MV Area VTI 3.05 (4.0-6.0 cm2) Pulmonary Valve PV Vmax 1.08 (0.5-1.5 m/s) RVOT Peak Gr. 4.05 mmHg PV Peak Grad 4.7 mmHg RVOT Mean Gr. 1.75 mmHg PV Mean Grad 2.3 mmHg RVOT VTI 0.147 m PV VTI 0.157 m RVOT Vmax 1.01 m/s Tricuspid Valve TR Peak Grad 21.5 mmHg TR Vmax 2.32 m/s RA Pressure 3.00 mmHg RVSP (TR) 24.6 mmHg
--- NOTE | 2021-10-13 | DI.RAD_ITS ---
Exam(s) XR ABDOMEN FLAT PLATE EXAM: 2D digital imaging was performed. CLINICAL HISTORY: postOp vomting/DE. COMPARISON: CT CT ABDOMEN PELVIS W from 10/12/2021 TECHNIQUE: Supine views of the abdomen performed. FINDINGS: BOWEL GAS PATTERN: Mildly dilated loops of small bowel are seen in the left upper quadrant as well as lower abdomen. No abnormal gastric distension. Moderate quantity of stool is visible. CALCIFICATIONS: No radiopaque calcifications. OSSEOUS STRUCTURES: Normal for age. OTHER FINDINGS: Overlying monitor leads. IMPRESSION: 1. Mild small bowel distension. 2. No radiopaque calculi. DATA REPOSITORY: RADIATION DOSE DELIVERED:
[2021-10-13] MEDS: Lactated Ringers 1,000 ML 30 ML IV (00:19)
[2021-10-13] MEDS: MORPHine 2 MG/ML SYR IVP ×7 (00:45→15:54)
[2021-10-13] MEDS: Ondansetron 4 MG/2 ML VIAL IVP ×2 (00:45→10:33)
[2021-10-13] MEDS: Acetaminophen 500 MG TAB 1000 MG PO ×3 (00:45→14:18)
--- NOTE | 2021-10-13 01:41 | W.ANESPOSTOP ---
Postoperative Evaluation Date, Time and Location Date Performed: 10/12/21 Time Performed: 23:45 Patient Location: Med/Surg Vital Signs Most Recent Imported Vital Signs: Most Recent Vital Signs Temp Pulse Resp BP Pulse Ox 36.3 C L 72 18 170/90 H 99 10/13/21 00:30 10/13/21 00:30 10/13/21 00:30 10/13/21 00:30 10/13/21 00:30 Pain Score Most Recent Pain Score: Most Recent Pain Score Pain Level 8 10/13/21 00:45 Assessment Mental Status: Awake (Alert & Oriented to Patient Baseline) Airway and Respiratory Function: Patent airway with normal (patient baseline) respiratory exam Cardiovascular Function: Hemodynamically Stable Hydration Status: Adequately Hydrated Nausea & Vomiting: No Nausea or Vomiting Pain: Pain is tolerable per patient Peripheral Nerve Block: Patient did not receive a nerve block Teaching Patient Teaching: Advised to seek followup for the following concerns (See explanation) Concerns: Other (Rapid HR during surgery. Appeared irregular with rates in the 140s-150s. BP remained stable and normalized prior to end of surgery. EKG sinus rhythm with PACs. Patient educated to signs and symptoms of AFIB and advised to seek care if onset of symptoms. )
[2021-10-13] MEDS: Heparin 5,000 UNITS/ML VIAL 5000 UNITS SC ×3 (04:12→19:48)
[2021-10-13] MEDS: Normal Saline Flush 10 ML SYR IVP ×5 (08:13→15:55)
--- NOTE | 2021-10-13 09:09 | PDOC.CMIN ---
- If Service Date Differs Date of service: 10/13/21 Time of Service: 09:09 Care Management Initial Assess REASON FOR HOSPITALIZATION:: Incarcerated left inguinal hernia PAST MEDICAL HISTORY/PAST SURGICAL HISTORY:: All Active Problems (Updated 10/12/21 @ 19:46 by Leif Brower MD). Incarcerated left inguinal hernia (Acute). Medical History . HIV (human immunodeficiency virus infection) PREVIOUS FUNCTIONAL STATUS/SOCIAL/FAMILY SUPPORTS:: Trevon is encarcerated at [facility]. ADVANCE DIRECTIVES:: None on file. Has patient been provided with info about the portal/API?: No Did the patient sign up for the portal?: No CODE STATUS:: Full Code INSURANCE COVERAGE / FINANCIAL ISSUES:: [facility] CURRENT HOME/COMMUNITY SERVICES/EQUIPMENT:: Encarcerated at [facility] PRIMARY CARE PHYSICIAN:: Dave Mendez PATIENT/FAMILY EDUCATION NEEDS:: Review discharge instructions, limitations, medications and plan to follow up with community providers. ask me three. TRANSPORTATION:: Via [facility]. PLAN:: Anticipate Trevon will discharge back to [facility] when medically ready. He will transport via [facility] vehicle.
--- NOTE | 2021-10-13 10:45 | RT.EKG_ITS ---
APPROVED REPORT Exam: Resting ECG Reason for Exam: PAF Patient Location: I HR:76 bpm ECG Measurements Heart Rate 76 AXIS NH 124 P 79 QRSd 106 QRS 38 QT 440 T 54 QTc 495 Conclusion Sinus rhythm...normal P axis, V-rate 50- 99 Ventricular trigeminy...trigeminy string>6 w/ V complexes Borderline low voltage, extremity leads...all extremity leads <0.6mV Borderline prolonged QT interval...QTc >475mS
--- NOTE | 2021-10-13 11:37 | PGE_ITS ---
Date of Service Date of service: 10/13/21 Time of Service: 11:37 Assessment and Plan Assessment and plan (1) Incarcerated left inguinal hernia: Status: Acute Assessment and plan: POD #1 status post left inguinal hernia repair with mesh. Regular diet Continue with pain control Continue with ice Encourage activity out of bed including sitting in the chair and ambulation. Suppository ordered to help promote bowel movement. Possible discharge later today. Patient seen and examined. From a surgical standpoint he is doing well. He has been up walking around. He denies any chest pain or shortness of breath. He is tolerating clear liquids. He has been unable to move his bowels. He says he has a history of constipation. He will use suppositories when this happens he says he is also been feeling very nauseated. Well in surgery last p.m. he did have a run of V. tach. His EKG today shows sinus rhythm. He is currently in sinus rhythm. Troponin and echo are pending today further recommendations based on the results of these Lungs are clear to auscultation bilaterally Incision is clean dry and intact. He has good bowel sounds. Lower extremities show no edema, swelling, pain. -Suppository and MiraLAX for bowel prophylaxis -Patient states he has been on methadone in the past. The only thing that helps for his pain is Dilaudid. We will work on setting up a multimodality pain program for him -Encourage coughing and deep breathing and spirometry. -His troponin did come back as 353. I did discuss with Dr. Garcia. Currently he is not having any chest pain or shortness of breath and pulmonary report on echo shows EF of 58% and no structural or valvular heart disease. Dr. Garcia recommended a full dose aspirin, but not did not think full antico agulation was warranted at this time. We will see what his troponins trend. 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 He states that it still feels out. He has been using the ice pack throughout the evening with improvement in his discomfort. He denies any fevers, chills or night sweats. Exam Const General: cooperative, healthy appearing and comfortable Orientation: alert and oriented x3 Resp Effort & Inspection: normal respiratory effort, no audible wheezes and no cough GI Inspection: normal to inspection Palpation: soft, no guarding and nontender Other: Patient is tender around the surgical site. Edges of the incision site are well approximated with skin affix in place. No erythema, ecchymosis, induration or swelling noted. Patient expressed concern that he has not had a bowel movement in 2 days. States he would like something to help promote a bowel movement. Objective Last Vital Signs Temp 36.9 C 10/13/21 08:41 Pulse 78 10/13/21 08:41 Resp 16 10/13/21 08:41 BP 181/90 H 10/13/21 08:41 Pulse Ox 96 10/13/21 08:41 Laboratory Results - last 24 hr 10/12/21 10/12/21 10/12/21 14:53 14:53 14:53 WBC Cancelled RBC Cancelled Hgb Cancelled Hct Cancelled MCV Cancelled MCH Cancelled MCHC Cancelled RDW Cancelled Plt Count Cancelled MPV Cancelled Immature Gran % Cancelled Neutrophils % Cancelled Band Neutrophils % Cancelled Lymphocytes % Cancelled Atypical Lymphs % Cancelled Monocytes % Cancelled Eosinophils % Cancelled Basophils % Cancelled Metamyelocytes % Cancelled Myelocytes % Cancelled Promyelocytes % Cancelled Other Cells % Cancelled Nucleated RBC % Cancelled Absolute Neutrophils Cancelled Absolute Lymphocytes Cancelled Absolute Monocytes Cancelled Absolute Eosinophils Cancelled Absolute Basophils Cancelled RBC Morphology Cancelled Polychromasia Cancelled Hypochromasia Cancelled Poikilocytosis Cancelled Basophilic Stippling Cancelled Anisocytosis Cancelled Microcytosis Cancelled Macrocytosis Cancelled Spherocytes Cancelled Tear Drop Cells Cancelled Ovalocytes Cancelled Stomatocytes Cancelled [place] Bodies Cancelled [place] Cells/Echinocytes Cancelled Acanthocytes (Spur) Cancelled Schistocytes Cancelled VBG Lactate 1.0 Sodium 143 Potassium 3.6 Chloride 101 Carbon Dioxide 30.2 Anion Gap 11.8 H BUN 7 Creatinine 0.7 Estimated GFR/1.73 m2 >= 60.00 Glucose 114 H Calcium 10.2 H Magnesium 2.2 Total Bilirubin 0.7 AST 40 H ALT 36 Alkaline Phosphatase 234 H Total Protein 10.9 H Albumin 4.6 Urine Color Urine Clarity Urine pH Ur Specific [place] Urine Protein Urine Ketones Urine Blood Urine Nitrite Urine Bilirubin Urine Urobilinogen Ur Leukocyte Esterase Urine Glucose COVID-19 Source SARS-CoV-2 (PCR) 10/12/21 10/12/21 10/12/21 15:05 16:50 20:00 WBC 10.29 RBC 5.42 Hgb 14.7 Hct 44.8 MCV 83 MCH 27.1 MCHC 32.8 RDW 16.4 H Plt Count 211 MPV 11.6 H Immature Gran % 0.4 Neutrophils % 65.0 Band Neutrophils % Lymphocytes % 26.1 Atypical Lymphs % Monocytes % 7.1 Eosinophils % 1.0 Basophils % 0.4 Metamyelocytes % Myelocytes % Promyelocytes % Other Cells % Nucleated RBC % 0.0 Absolute Neutrophils 6.69 Absolute Lymphocytes 2.69 Absolute Monocytes 0.73 Absolute Eosinophils 0.10 Absolute Basophils 0.04 RBC Morphology Polychromasia Hypochromasia Poikilocytosis Basophilic Stippling Anisocytosis Microcytosis Macrocytosis Spherocytes Tear Drop Cells Ovalocytes Stomatocytes [place] Bodies [place] Cells/Echinocytes Acanthocytes (Spur) Schistocytes VBG Lactate Sodium Potassium Chloride Carbon Dioxide Anion Gap BUN Creatinine Estimated GFR/1.73 m2 Glucose Calcium Magnesium Total Bilirubin AST ALT Alkaline Phosphatase Total Protein Albumin Urine Color Yellow Urine Clarity Cloudy Urine pH 7.5 Ur Specific [place] 1.025 Urine Protein Negative Urine Ketones Negative Urine Blood Negative Urine Nitrite Negative Urine Bilirubin Negative Urine Urobilinogen 0.2 Ur Leukocyte Esterase Negative Urine Glucose Negative COVID-19 Source Nasal/Nares SARS-CoV-2 (PCR) Negative
[2021-10-13] MEDS: Bisacodyl 10 MG SUPP PR (12:32)
--- NOTE | 2021-10-13 12:53 | NUR.NOTE ---
Nursing Note: Patient was resistive to insertion of the biscodyl suppository. He kept pushing the suppository back out. We wer able to get it inserted on the third try
--- NOTE | 2021-10-13 12:55 | NUR.NOTE ---
Nursing Note: Patient experienced cramping after lunch
[2021-10-13 13:28] LABS: TSH (W/Ref FT4) 0.84 uIU/mL (0.36-3.74)
[2021-10-13] MEDS: Glycerin Adult Suppository JAR 1 SUPP PR (13:28)
[2021-10-13 13:30] LABS: Troponin I 353 ng/L (<or=60)
--- NOTE | 2021-10-13 13:30 | RT.EKG_ITS ---
APPROVED REPORT Exam: Resting ECG Reason for Exam: elevated troponin Patient Location: I HR:87 bpm ECG Measurements Heart Rate 87 AXIS AR 119 P 78 QRSd 95 QRS 30 QT 411 T 38 QTc 495 Conclusion Sinus rhythm...normal P axis, V-rate 50- 99 Atrial premature complex...SV complex w/ short R-R interval Borderline short AR interval...AR int <120mS Borderline ST depression, lateral leads...ST <-0.07mV, I aVL V5 V6 Borderline prolonged QT interval...QTc >475mS
[2021-10-13] MEDS: Aspirin 81 MG CHEW 324 MG CH (14:18)
[2021-10-13] MEDS: Milk of Magnesia 30 ML CUP PO (14:18)
--- NOTE | 2021-10-13 16:13 | W.MEDCONSULT ---
Date of service: 10/13/21 Time of Service: 16:13 Assessment and Plan Assessment and plan (1) Narrow complex tachycardia: Status: Acute Assessment and plan: I reviewed the rhythm strip that was scanned into the system from the OR. I am not convinced that this was atrial fibrillation. The RR intervals are very regular the rate was 136 bpm and the tachycardia was broken by a PAC followed by what is clearly sinus tachycardia. Rhythm very well may have been PSVT. Patient does have a lot of atrial and ventricular ectopic beats on his EKG from earlier today. His EKG showed has some subtle ST depression in the inferior leads of 0.5 mm. These were level rather than downsloping ST segments. Patient has no symptoms of anginal pain at the present time all of his pain seems to be postsurgical pain in his abdomen. I suspect he may have a postoperative ileus given that he is having nausea and vomiting. The fact that he had an elevated troponin postoperatively may be indicative that he has some underlying coronary artery disease and had some stress-induced ischemia from the surgery. His echocardiogram today was reassuring and that showed no regional wall motion abnormalities and his left ventricular function was well-preserved with an LVEF of 58%. He has normal left atrial and normal right atrial size. My recommendation would be to trend out the troponins as long as there is no significant rise in the troponins I would treat this as a stress-induced ischemia. I would keep him on an aspirin but he does not need anticoagulation at this point. We could consider outpatient stress MPI study to look for occult coronary disease. I would also get a cardiac event recorder such as a 14-day Zio patch or 30-day event recorder looking for paroxysmal atrial fibrillation and PSVT. I would also consider doing an outpatient sleep study looking for obstructive sleep apnea. I would start him on low-dose beta-blockers postoperatively to control his atrial ventricular ectopy. Monitor his electrolytes and treat any electrolyte abnormalities such as hypokalemia or hypomagnesemia. I think the risk of anticoagulation are greater than the benefits as this does not appear to be a plaque rupture and is probably just stress-induced ischemic troponin leak. I have requested from the patient that he signed consent so we can obtain records from his cardiology work-up from [facility] from last year. Professional time spent interviewing and examining patient, discussion of goals of care with hospital team (care management, nursing and consulting professionals) was 60 minutes. (2) Elevated troponin: Status: Acute Assessment and plan: As above (3) Incarcerated left inguinal hernia: Status: Acute Assessment and plan: Pain management and antiemetic treatment as per surgeon (4) Aortic valve cusp abnormality: Status: Acute Assessment and plan: I discussed the patient's echocardiogram with Dr. Markell Sung from cardiology. Dr. Sung had some concerns about some thickening of the noncoronary cusp of the aortic valve. Given the patient's history of IV drug abuse I would obtain random blood cultures to rule out subacute endocarditis. I would also follow-up his transthoracic echocardiogram as an outpatient with a OSIEL or at the least have him see a forest science professor as an outpatient. 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 I have asked his guards to call the snf to arrange for his medications to be sent to [facility] so our pharmacist can verify them and resume his medications tomorrow History of Present Illness History of Present Illness Chief Complaint: PAF associated w/ inguinal hernia repair; abnormal troponin Narrative: 65-year-old -[place] male who is currently an inmate at the local snf was brought to the emergency department with acute onset of left inguinal pain while climbing onto a bunk bed. He was found to have an inguinal hernia that was incarcerated. This was confirmed on CT scan of his abdomen pelvis last night and he was admitted to the surgical service and underwent emergent surgery to perform left inguinal hernia repair with mesh via anterior approach. Shortly after anesthesia induction patient developed narrow complex tachycardia which was read by anesthesia as possible atrial fibrillation. Reported rate was 119 bpm. The rhythm strip which was saved and scanned into the chart shows a narrow complex tachycardia at a rate of 136 bpm it appears to be regular and the rate is interrupted with a PAC in which the rhythm clearly is sinus rhythm at a controlled rate of 115 bpm the case was completed and rate remained relatively controlled rhythm remained sinus to sinus tachycardia and blood pressure remained stable throughout the case. Hospitalist medicine was consulted last night although we were not called by the surgeon nor were we called by the nurses to complete the consult last night. I was made aware the case this morning by the charge nurse on medical/surgical floor. Dr. Villar then spoke with me this afternoon about the case. Patient gives a history of many years of irregular heart rhythm and says that he had a previous work-up about a year ago at the [facility] although he referred to the institution is [facility] which is the institutions former name. He reportedly had seen a forest science professor Dr. Sims we did a work-up including an echocardiogram although it does not sound like he had any Holter or stress test or cardiac cath from what the patient describes. He was not placed on any medications for any rhythm issues nor was he placed on any anticoagulants. Patient is not bothered by any exertional chest pain or pressure although he states that his physical activities are fairly limited secondary to arthritis and psoriasis of his legs. He is a smoker formerly a 2 pack-a-day smoker down to 1 pack every 3 weeks. He has a history of IV drug abuse in which she most recently used fentanyl and methadone within the past month prior to going to snf. He denies a history of endocarditis and denies a history of myocardial infarction or congestive heart failure or strokes. He does have a history of HIV since 1986 and has been on medications. He has been missing his medication since he came into the hospital. Since being admitted to the medical/surgical floor after surgery his rhythm is remained sinus rhythm with occasional PACs and PVCs. No runs of SVT or atrial fibrillation have been observed. Review of Systems All systems reviewed & are unremarkable except as noted in HPI and below PFSH All Active Problems (Updated 10/13/21 @ 19:47 by Fernando Pappas MD) History of intravenous drug abuse (Acute) Aortic valve cusp abnormality (Acute) Narrow complex tachycardia (Acute) Elevated troponin (Acute) History of ETOH abuse (Acute) Smoker unmotivated to quit (Acute) Atherosclerosis (Acute) Methadone maintenance therapy patient (Acute) Edentulous (Acute) Umbilical hernia (Acute) Gallstones (Acute) Cirrhosis of liver (Acute) Incarcerated left inguinal hernia (Acute) Medical History HIV (human immunodeficiency virus infection) Social History Smoking/Tobacco Use Status: Current every day Tobacco Type: cigarettes Smoking risk assessment performed?: Yes Alcohol Intake: former Drug use: Never Substance use type: does not use Exam Narrative Exam Narrative: Thin male who is lying in bed in discomfort and with nausea and vomiting. He is not in any acute respiratory distress but is in discomfort from his abdominal pain and nausea. Lungs are clear to auscultation Heart is regular with frequent ectopic beats and a soft systolic murmur Abdomen is slightly distended with hypoactive bowel sounds with tenderness over the lower abdomen. Left inguinal hernia repair is intact without drainage Extremities without peripheral edema Results Last Vital Signs Temp 36.6 C 10/13/21 12:45 Pulse 70 10/13/21 12:45 Resp 16 10/13/21 12:45 BP 168/72 H 10/13/21 12:45 Pulse Ox 98 10/13/21 12:45 Labs Result diagrams: 10/12/21 15:05 10/12/21 14:53 Labs: Laboratory Results - last 24 hr 10/12/21 10/12/21 10/13/21 16:50 20:00 12:45 Troponin I 353 H* TSH 0.84 Urine Color Yellow Urine Clarity Cloudy Urine pH 7.5 Ur Specific [place] 1.025 Urine Protein Negative Urine Ketones Negative Urine Blood Negative Urine Nitrite Negative Urine Bilirubin Negative Urine Urobilinogen 0.2 Ur Leukocyte Esterase Negative Urine Glucose Negative COVID-19 Source Nasal/Nares SARS-CoV-2 (PCR) Negative
--- NOTE | 2021-10-13 17:23 | DI.VRAD_ITS ---
PROCEDURE INFORMATION: Exam: XR Abdomen Exam date and time: 10/13/2021 5:08 PM Age: 65 years old Clinical indication: Other: Post-op vomiting/ mi TECHNIQUE: Imaging protocol: Radiologic exam of the abdomen. Views: Frontal supine view of the abdomen. 1 View. COMPARISON: CT ABDOMEN PELVIS W 10/12/2021 4:40 PM FINDINGS: Gastrointestinal tract: Multiple loops of dilated small bowel may represent obstruction or ileus.. Bones/joints: Unremarkable. IMPRESSION: Multiple loops of dilated small bowel may represent obstruction or ileus.. Dictated and Authenticated by: Rene Aguirre MD. Ordering:CARI Leal MD
[2021-10-13 17:28] LABS: Troponin I 341 ng/L (<or=60)
[2021-10-13] MEDS: FAMOTIDINE 20 MG in Normal Saline 100 ML 400 MG IVPB (18:10)
[2021-10-13] MEDS: Prochlorperazine 10 MG/2 ML VIAL 5 MG IVP (19:11)
[2021-10-13] MEDS: Metoprolol 5 MG/5 ML VIAL 2.5 MG IVP (19:48)
[2021-10-13 21:04] LABS: Troponin I 355 ng/L (<or=60)
[2021-10-13] MEDS: Ketorolac 15 MG/ML VIAL IVP (21:24)
[2021-10-13] MEDS: HYDROmorphone 2 MG/ML SYR 0.5 MG IVP (21:25)
[2021-10-13] MEDS: Lactated Ringers 1,000 ML 100 ML IV (22:50)
[2021-10-14] VITALS (14 sets, daily range): BP systolic 113–173; BP diastolic 65–94; PULSE 80–122; RESP 16–18; TEMP 36.5–37.3; O2SAT 97–99
--- NOTE | 2021-10-14 | DI.RAD_ITS ---
Exam(s) XR ABDOMEN FLAT UPRIGHT EXAM: 2D digital imaging was performed. CLINICAL HISTORY: follow up on ileus. COMPARISON: CR XR ABDOMEN FLAT UPRIGHT from 10/14/2021 TECHNIQUE: Supine and upright views of the abdomen was performed. Three images were obtained. FINDINGS: LUNG BASES: Clear. BOWEL GAS PATTERN: There are persistent dilated loops of small bowel present. Air-fluid levels are s een on the upright view. There has been no significant change compared to the prior examination from earlier in the day. FREE AIR: None. CALCIFICATIONS: No radiopaque calcifications. OSSEOUS STRUCTURES: Normal for age. OTHER FINDINGS: Atherosclerosis is present. IMPRESSION: No significant change in the dilated small bowel loops and air-fluid levels. Small bowel obstruction versus adynamic ileus. DATA REPOSITORY: RADIATION DOSE DELIVERED:
[2021-10-14] MEDS: Metoprolol 5 MG/5 ML VIAL 2.5 MG IVP ×2 (01:23→05:45)
[2021-10-14] MEDS: HYDROmorphone 2 MG/ML SYR 0.5 MG IVP ×4 (01:49→20:18)
[2021-10-14] MEDS: Heparin 5,000 UNITS/ML VIAL 5000 UNITS SC ×2 (05:45→20:18)
[2021-10-14] MEDS: Ondansetron 4 MG/2 ML VIAL IVP ×2 (05:45→20:18)
[2021-10-14 07:43] LABS: Abs Immature Grans 0.03 10^3/uL (0.0-0.06); Absolute Basophil Count 0.03 10^3/uL (0.0-0.2); Absolute Eosinophil Count 0.02 10^3/uL (0.0-0.7); Absolute Lymphocyte Count 2.22 10^3/uL (1.2-3.4); Absolute Monocyte Count 0.96 10^3/uL (0.1-0.8); Absolute Neutrophil Count 4.89 10^3/uL (1.2-6.7); Basophils % 0.4; Eosinophils % 0.2; HCT 43.9 % (40.0-50.0); HGB 14.1 g/dL (13.5-17.5); Immature Grans % 0.4; Lymphocytes % 27.2; MCH 26.6 pg (27.0-33.0); MCHC 32.1 % (32.0-36.0); MCV 83 fL (80-95); Monocytes % 11.8; RDW 16.7 % (11.8-14.1); RDW-SD 49.3 fL; WBC 8.15 10^3/uL (4.4-10.8)
[2021-10-14 07:57] LABS: ALT 18 U/L (16-63); AST 19 U/L (15-37); Albumin 3.1 g/dL (3.4-5.0); Alkaline Phosphatase 171 U/L (46-116); Anion Gap 7.5 mmol/L (3-11); BUN 11 mg/dL (7-18); Bilirubin, Total 0.9 mg/dL (0.2-1.0); CO2 30.5 mmol/L (21.0-32.0); CREATININE 0.8 mg/dL (0.70-1.30); Chloride 100 mmol/L (98-107); Glucose 126 mg/dL (74-106); Sodium 138 mmol/L (136-145); Total Protein 8.1 g/dL (6.4-8.2)
--- NOTE | 2021-10-14 08:00 | DI.RAD_ITS ---
Exam(s) XR ABDOMEN FLAT UPRIGHT EXAM: 2D digital imaging was performed. CLINICAL HISTORY: ileus/postOP KS. COMPARISON: CR,XR XR ABDOMEN FLAT PLATE from 10/13/2021 TECHNIQUE: Supine and upright views of the abdomen were performed. FINDINGS: [id number] diffuse small bowel distention with air-fluid levels, slightly worse when compared w ith the previous exam. No free air. Lung bases clear. Heart size normal. Small amount of air in a nd stool seen in colon. IMPRESSION: [id number] dilatation of small-bowel loops with air-fluid levels likely of or fact ting postop ileus. DATA REPOSITORY: RADIATION DOSE DELIVERED:
[2021-10-14 08:06] LABS: Troponin I 279 ng/L (<or=60)
--- NOTE | 2021-10-14 08:27 | CMPROGNOTE_ITS ---
- If Service Date Differs Date of service: 10/14/21 Time of Service: 08:27 Care Management Progress Note S/O: Trevon is lying in bed sleeping, he is accompanied by [facility] guards. Anticipate, Trevon will discharge back to [facility] when medically ready. Per morning meeting he will need an outpatient OSIEL and playground monitor. A: 65 year old male admitted to [facility] on 10/12/21 for Incarcerated left inguinal hernia. P: Anticipate, Trevon will discharge back to [facility] when medically ready. He will transport via [facility] vehicle.
--- NOTE | 2021-10-14 08:27 | PDOC.CMPRO ---
- If Service Date Differs Date of service: 10/14/21 Time of Service: 08:27 Care Management Progress Note S/O: Trevon is lying in bed sleeping, he is accompanied by [facility] guards. Anticipate, Trevon will discharge back to [facility] when medically ready. Per morning meeting he will need an outpatient OSIEL and manager cardiac cath. A: 65 year old male admitted to [facility] on 10/12/21 for Incarcerated left inguinal hernia. P: Anticipate, Trevon will discharge back to [facility] when medically ready. He will transport via [facility] vehicle.
--- NOTE | 2021-10-14 08:30 | RT.EKG_ITS ---
APPROVED REPORT Exam: Resting ECG Reason for Exam: elevated trop postOP Patient Location: I HR:87 bpm ECG Measurements Heart Rate 87 AXIS SD 103 P -69 QRSd 98 QRS 44 QT 394 T 70 QTc 474 Conclusion ectopic atrial rhythm...P axis (-45,135) Short SD interval...SD <110mS Minimal ST depression, lateral leads...ST <-0.04mV, I aVL V5 V6
[2021-10-14 08:55] LABS: Platelet Count 214 10^3/uL (130-400)
--- NOTE | 2021-10-14 09:07 | PGE_ITS ---
Date of Service Date of service: 10/14/21 Time of Service: 09:07 Assessment and Plan Assessment and plan (1) Narrow complex tachycardia: Status: Acute Assessment and plan: I am now convinced that his arrhythmia in the OR was not afib but rather a short lived run of PSVT which he has since had repeat episode last night. Upon discharge he will need the followin) referral to cardiology for follow up of both his PSVT and follow up of his aortic valve abnormality, 2) outpatient cardiac event recorder either 14 day or 30 day, 3) rate controlling meds; preferably a beta nova, 4) set up for stress MPI 5) referral for sleep study (2) Elevated troponin: Status: Acute Assessment and plan: as above (3) Incarcerated left inguinal hernia: Status: Acute Assessment and plan: managed by surgery. I have ordered him an enema to help w/ his constipation (4) Aortic valve cusp abnormality: Status: Acute Assessment and plan: non-specific findings per Dr. Sung. Potential for endocarditis in the correct setting. Patient is a known iv drug user but currently asymptomatic for any systemic infeciton. i.e., no fever, rigors or leukocytosis. I would just have him follow up w/ cardiology who can set him up for OSIEL. If he spikes fever while here, then get serial blood cultures before empiric antibiotics. i.e. get a few blood cultures (3 to 5). Professional time spent interviewing and examining patient, discussion of goals of care with hospital team (care management, nursing and consulting professionals) was 30 minutes. (5) History of intravenous drug abuse: Status: Acute Assessment and plan: patient states the he uses clean needles everytime but I would have low threshold for treatment for endocarditis if he spikes a fever. 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 I gave them to nursing to send to pharmacy to identify and to order Subjective Subjective Interval history since last seen: Kathy main complaint is lack of BM and would like an enema. He has had no chest pains. On telemetry he has had brief PSVT w/ rates up to the 160's but only for 12 beat run during the night around 2:16 a.m. His troponin levels are coming down. his echo did not show any rwma and his LVEF if 58%. I went over his echo results w/ him and told him about the non-specific thickening of his non- coronary cusp of his aortic valve. I am recommending outpatient follow up w/ cardiology to consider OSIEL. I am also recommending that he have outpatient cardiac event recorder. Exam Narrative Exam Narrative: Older male; no acute distress; oriented x 3 Lungs: clear Heart: regular w/ occasional ectopic beat Abdomen: slight distension w/ active bowel sounds(patient states no flatus or BM yet); mild tenderness over suprapubic area; no rebound tenderness Extremities: no edema Objective Last Vital Signs Temp 37.3 C 10/14/21 08:05 Pulse 91 H 10/14/21 08:05 Resp 18 10/14/21 08:05 BP 137/89 10/14/21 08:05 Pulse Ox 98 10/14/21 08:05 Laboratory Results - last 24 hr 10/13/21 10/13/21 10/13/21 12:45 16:50 20:32 WBC RBC Hgb Hct MCV MCH MCHC RDW Plt Count MPV Immature Gran % Neutrophils % Lymphocytes % Monocytes % Eosinophils % Basophils % Nucleated RBC % Absolute Neutrophils Absolute Lymphocytes Absolute Monocytes Absolute Eosinophils Absolute Basophils Sodium Potassium Chloride Carbon Dioxide Anion Gap BUN Creatinine Estimated GFR/1.73 m2 Glucose Calcium Total Bilirubin AST ALT Alkaline Phosphatase Troponin I 353 H* 341 H* 355 H* Total Protein Albumin TSH 0.84 10/14/21 10/14/21 06:50 06:50 WBC 8.15 RBC 5.30 Hgb 14.1 Hct 43.9 MCV 83 MCH 26.6 L MCHC 32.1 D RDW 16.7 H Plt Count 214 MPV Immature Gran % 0.4 Neutrophils % 60.0 Lymphocytes % 27.2 Monocytes % 11.8 Eosinophils % 0.2 Basophils % 0.4 Nucleated RBC % 0.0 Absolute Neutrophils 4.89 Absolute Lymphocytes 2.22 Absolute Monocytes 0.96 H Absolute Eosinophils 0.02 Absolute Basophils 0.03 Sodium 138 Potassium 4.0 Chloride 100 Carbon Dioxide 30.5 Anion Gap 7.5 BUN 11 Creatinine 0.8 Estimated GFR/1.73 m2 >= 60.00 Glucose 126 H Calcium 9.0 Total Bilirubin 0.9 AST 19 ALT 18 Alkaline Phosphatase 171 H Troponin I 279 H* Total Protein 8.1 Albumin 3.1 L TSH
[2021-10-14] MEDS: Prochlorperazine 10 MG/2 ML VIAL 5 MG IVP (09:33)
[2021-10-14] MEDS: Ketorolac 15 MG/ML VIAL IVP ×2 (09:40→20:18)
[2021-10-14] MEDS: Normal Saline Flush 10 ML SYR IVP ×3 (09:41→18:27)
[2021-10-14] MEDS: Lactated Ringers 1,000 ML 100 ML IV (12:45)
[2021-10-14] MEDS: Methylnaltrexone 12 MG/0.6 ML VIAL SC (12:55)
[2021-10-14] MEDS: Metoprolol 5 MG/5 ML VIAL IVP ×2 (13:05→18:26)
--- NOTE | 2021-10-14 16:43 | W.PM.PROGNOT ---
Date of Service Date of service: 10/14/21 Time of Service: 16:44 Assessment and Plan Assessment and plan (1) Incarcerated left inguinal hernia: Status: Acute Assessment and plan: POD #2 status post left inguinal hernia repair with mesh. He started reching this morning and throwing up some bile. He is NPO. XRAY showed an ileus pattern On exam there is no recurrence of his hernia Plan: 1. NPO Continue with pain control- long discussion with patient that he should only be taking dilauded when his pain is above a 5, otherwise he should have toradol and tylenol. Continue with ice Encourage activity out of bed including sitting in the chair and ambulation. 2. Patient is unhappy that I will not let him drink or eat. Tried to explain to him that his small intestine is not working and we can't have him drinking or eating. Appreciate Hospitalist assisting with patients other medical issues. 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 Fry complains of abdominal pain and asked me did someone screw up my surgery. I still have a lump there. He has been reching and vomiting Exam Const General: cooperative, comfortable and no acute distress [facility] Head: normocephalic and atraumatic Resp Effort & Inspection: normal respiratory effort Auscultation: clear to auscultation bilaterally GI Inspection: normal to inspection and incision (incision c/d/i) Palpation: soft, no hepatosplenomegaly, no hernias and tender (along the incision and down over the vas) Objective Last Vital Signs Temp 98.8 F 10/14/21 15:22 Pulse 122 H 10/14/21 15:40 Resp 17 10/14/21 15:22 BP 128/89 10/14/21 15:22 Pulse Ox 99 10/14/21 15:22 Laboratory Results - last 24 hr 10/13/21 10/13/2122 16:50 20:32 06:50 WBC RBC Hgb Hct MCV MCH MCHC RDW Plt Count MPV Immature Gran % Neutrophils % Lymphocytes % Monocytes % Eosinophils % Basophils % Nucleated RBC % Absolute Neutrophils Absolute Lymphocytes Absolute Monocytes Absolute Eosinophils Absolute Basophils Sodium 138 Potassium 4.0 Chloride 100 Carbon Dioxide 30.5 Anion Gap 7.5 BUN 11 Creatinine 0.8 Estimated GFR/1.73 m2 >= 60.00 Glucose 126 H Calcium 9.0 Total Bilirubin 0.9 AST 19 ALT 18 Alkaline Phosphatase 171 H Troponin I 341 H* 355 H* 279 H* Total Protein 8.1 Albumin 3.1 L 10/14/21 06:50 WBC 8.15 RBC 5.30 Hgb 14.1 Hct 43.9 MCV 83 MCH 26.6 L MCHC 32.1 D RDW 16.7 H Plt Count 214 MPV Immature Gran % 0.4 Neutrophils % 60.0 Lymphocytes % 27.2 Monocytes % 11.8 Eosinophils % 0.2 Basophils % 0.4 Nucleated RBC % 0.0 Absolute Neutrophils 4.89 Absolute Lymphocytes 2.22 Absolute Monocytes 0.96 H Absolute Eosinophils 0.02 Absolute Basophils 0.03 Sodium Potassium Chloride Carbon Dioxide Anion Gap BUN Creatinine Estimated GFR/1.73 m2 Glucose Calcium Total Bilirubin AST ALT Alkaline Phosphatase Troponin I Total Protein Albumin
--- NOTE | 2021-10-14 18:15 | DI.VRAD_ITS ---
PROCEDURE INFORMATION: Exam: XR Abdomen Exam date and time: 10/14/2021 5:20 PM Age: 65 years old Clinical indication: Other: F/u ileus TECHNIQUE: Imaging protocol: Radiologic exam of the abdomen. Views: 2 Views. Upright and supine views. COMPARISON: CR XR ABDOMEN FLAT UPRIGHT 10/14/2021 8:32 AM FINDINGS: Gastrointestinal tract: Dilated loops of small bowel are again noted measuring approximately 4 cm in diameter. These do not appear substantially changed when compared to the previous exam. Air-fluid levels are present on the upright view. Intraperitoneal space: No pneumoperitoneum is noted. Bones/joints: Unremarkable for age. IMPRESSION: Dilated small bowel and air-fluid levels as described above. This is not significantly changed since prior study. Findings are compatible with small bowel obstruction versus adynamic ileus. Dictated and Authenticated by: Ryan Jacob MD. Ordering:RADHA Adkins MD
[2021-10-14] MEDS: FAMOTIDINE 20 MG in Normal Saline 100 ML 400 MG IVPB (18:27)
[2021-10-14] MEDS: ACETAMINOPHEN 1,000 MG/100 ML BTL 400 MG IVPB (22:18)
[2021-10-15] VITALS (18 sets, daily range): BP systolic 123–165; BP diastolic 74–94; PULSE 76–102; RESP 16–85; TEMP 36.3–36.8; O2SAT 90–99
--- NOTE | 2021-10-15 | DI.CT_ITS ---
Exam(s) CT ABDOMEN PELVIS WO EXAM: CT ABDOMEN PELVIS WO CLINICAL HISTORY: SBO vs ileus, s/p repair of incarcerated inguinal. TECHNIQUE: Imaging Protocol: Axial computed tomography images with coronal and sagittal reformatted images were created and reviewed. COMPARISON: CT CT ABDOMEN PELVIS W from 10/12/2021 CR,XR XR ABDOMEN FLAT PLATE from 10/13/2021 CR XR ABDOMEN FLAT UPRIGHT from 10/14/2021 CR,XR XR ABDOMEN FLAT UPRIGHT from 10/14/2021 FINDINGS: ABDOMEN: Lung Bases: The tip of the orogastric tube is seen in the body of the stomach. Liver: The liver has a lobulated contour raising the question of hepatic cirrhosis. The liver measur es 18 cm long. No measurable mass. Gallbladder and biliary tract: Cholelithiasis is present. There is no biliary ductal dilatation. Pancreas: Normal density, no abnormal calcifications or inflammatory process. Spleen: Normal. Kidneys: Normal size, contour and axis.No radiodense stones or obstructive uropathy. No masses seen. Adrenal glands: No mass is seen. Lymph nodes: Within normal limits. Abdominal Aorta: Abdominal portion non-dilated. Atherosclerosis is present. PELVIS: Bladder:Symmetric distention, no gross wall thickening. Bowel: The colon is of normal caliber. No evidence of appendicitis is present. Since the prior exam ination the patient has undergone a repair for and left inguinal hernia. Postsurgical changes are se en in the soft tissues in the left inguinal region. No focal fluid collection is seen to suggest an abscess. Subcutaneous air is seen consistent with recent surgery. There is no evidence of a recurre nt hernia. There are dilated loops of proximal small bowel up to 3.5 cm in diameter. There does carmella ear to be a transition in the left lower quadrant. The distal small bowel is of normal caliber. Peritoneal cavity: No ascites, collection or mesenteric inflammatory response. No free air. Reproductive organs: Within normal limits. Bones: Within normal limits. There is appears to be a nondisplaced fracture of the lateral aspect of the left 8th rib. Soft Tissues: Within normal limits. Postsurgical changes are seen in the left inguinal region consist ent with the patient's recent hernia repair. IMPRESSION: 1. Status post left inguinal hernia repair. No evidence of a recurrent hernia. 2. Dilated loop of proximal small bowel up to 3.5 cm in diameter. Normal caliber distal small bowel and colon is present. The findings are suspicious for proximal small bowel obstruction. 3. Findings suspicious for nondisplaced left 8th rib fracture. RADIATION DOSE DELIVERED: 718.03mGy.cm Total DLP DATA REPOSITORY: All CT scans at this facility are submitted to the National Radiology Data Registry (NRDR) Dose Index Registry (DIR) with the [employer] (ACR). RADIATION OPTIMIZATION: All CT scans at this facility use at least one of these dose optimization te chniques: automated exposure control; mA and/or kV adjustment per patient size (includes targeted exa ms where dose is matched to clinical indication); or iterative reconstruction.
[2021-10-15] MEDS: HYDROmorphone 2 MG/ML SYR 0.5 MG IVP ×5 (00:30→22:31)
[2021-10-15] MEDS: Metoprolol 5 MG/5 ML VIAL IVP ×4 (00:52→18:13)
[2021-10-15] MEDS: Normal Saline Flush 10 ML SYR IVP ×6 (00:53→18:28)
[2021-10-15] MEDS: Lactated Ringers 1,000 ML 100 ML IV ×2 (00:56→13:54)
[2021-10-15] MEDS: ACETAMINOPHEN 1,000 MG/100 ML BTL 400 MG IVPB ×3 (05:54→22:31)
[2021-10-15] MEDS: Ketorolac 15 MG/ML VIAL IVP ×2 (05:54→20:48)
[2021-10-15 07:10] LABS: Anion Gap 6.3 mmol/L (3-11); BUN 25 mg/dL (7-18); CO2 30.7 mmol/L (21.0-32.0); CREATININE 0.7 mg/dL (0.70-1.30); Calcium 8.7 mg/dL (8.5-10.1); Chloride 100 mmol/L (98-107); Glucose 125 mg/dL (74-106); Magnesium 2.2 mg/dL (1.8-2.4); Potassium 3.9 mmol/L (3.5-5.1); Sodium 137 mmol/L (136-145)
[2021-10-15 07:21] LABS: Troponin I 190 ng/L (<or=60)
--- NOTE | 2021-10-15 08:43 | CMPROGNOTE_ITS ---
- If Service Date Differs Date of service: 10/15/21 Time of Service: 08:43 Care Management Progress Note S/O: Trevon is lying in bed sleeping, he is accompanied by [facility] guards. He has been ambulating in the keyes with escorts. Anticipate, Trevon will discharge back to [facility] when medically ready. Per morning meeting he will need an event recorder and cardiology appointment on discharge. Per provider, Cardiology will decide if an outpatient OSIEL is needed. A: 65 year old male admitted to [facility] on 10/12/21 for Incarcerated left inguinal hernia. P: Anticipate, Trevon will discharge back to [facility] when medically ready. He will transport via [facility] vehicle.
--- NOTE | 2021-10-15 08:43 | PDOC.CMPRO ---
- If Service Date Differs Date of service: 10/15/21 Time of Service: 08:43 Care Management Progress Note S/O: Trevon is lying in bed sleeping, he is accompanied by [facility] guards. He has been ambulating in the keyes with escorts. Anticipate, Trevon will discharge back to [facility] when medically ready. Per morning meeting he will need an event recorder and cardiology appointment on discharge. Per provider, Cardiology will decide if an outpatient OSIEL is needed. A: 65 year old male admitted to [facility] on 10/12/21 for Incarcerated left inguinal hernia. P: Anticipate, Trevon will discharge back to [facility] when medically ready. He will transport via [facility] vehicle.
[2021-10-15] MEDS: LORazepam 2 MG/ML VIAL 1 MG IVP ×2 (09:05→20:48)
[2021-10-15] MEDS: Lidocaine 2% Jelly 11 ML SYR (09:57)
--- NOTE | 2021-10-15 12:19 | W.PM.PROGNOT ---
Date of Service Date of service: 10/15/21 Time of Service: 12:19 Assessment and Plan Assessment and plan (1) Incarcerated left inguinal hernia: Status: Acute Assessment and plan: POD #3 status post left inguinal hernia repair with mesh. Ordered patient received Ativan push prior to another attempt of NG tube placement. Patient was agreeable to this and the nursing staff are able to get the NG tube in and 1 L was drained immediately after following placement. We will continue to monitor output. Emphasized again with the patient that he is not able to eat food due to question of SBO versus ileus. Plan: 1. NPO; Sips of water/gingerale only. Ice chips okay. Benzocaine lozenges have been ordered. 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 Following 2 attempts patient refused to proceed. Patient expresses that he has been vomiting which has of while odor. He is concerned that the hernia has recurred. Patient is eager to eat real food. He expresses mild discomfort in his left groin. He denies any fevers, chills or night sweats. Exam Const General: cooperative, healthy appearing and comfortable Orientation: alert and oriented x3 Resp Effort & Inspection: normal respiratory effort, no audible wheezes and no cough Other: left groin- Surgical site noted from hernia repair. Skin a fix in place. No erythema noted. Mild swelling GI Inspection: normal to inspection Palpation: soft, no guarding and tender Objective Last Vital Signs Temp 36.6 C 10/15/21 11:24 Pulse 85 10/15/21 11:24 Resp 17 10/15/21 11:24 BP 154/90 H 10/15/21 11:24 Pulse Ox 99 10/15/21 11:24 Laboratory Results - last 24 hr 10/15/21 06:32 Sodium 137 Potassium 3.9 Chloride 100 Carbon Dioxide 30.7 Anion Gap 6.3 BUN 25 H Creatinine 0.7 Estimated GFR/1.73 m2 >= 60.00 Glucose 125 H Calcium 8.7 Magnesium 2.2 Troponin I 190 H*
--- NOTE | 2021-10-15 13:48 | PGE_ITS ---
Date of Service Date of service: 10/15/21 Time of Service: 10:45 Assessment and Plan Assessment and plan (1) Narrow complex tachycardia: Status: Acute Assessment and plan: Continue Lopressor 5 mg IV every 6 hours. Transition over to oral Toprol-XL once he is able to take oral medications. Arrange outpatient cardiac event recorder and cardiology referral. Neck Professional time spent interviewing and examining patient, discussion of goals of care with hospital team (care management, nursing and consulting professionals) was 15 minutes. (2) Elevated troponin: Status: Acute Assessment and plan: as above (3) Incarcerated left inguinal hernia: Status: Acute Assessment and plan: Management per surgery services (4) Aortic valve cusp abnormality: Status: Acute Assessment and plan: Patient needs follow-up cardiology referral upon discharge and to be set up for OSIEL as outpatient. (5) History of intravenous drug abuse: Status: Acute Assessment and plan: patient states the he uses clean needles everytime but I would have low threshold for treatment for endocarditis if he spikes a fever. 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 He is now receiving his Odefsey. Subjective Subjective Interval history since last seen: Patient's had no chest pain or pressure no palpitations. However he continues to have abdominal distention and nausea. He has bilateral agreed to placement of NG for postoperative ileus. Remains on telemetry monitoring with normal s inus rhythm no PSVT overnight per my discussion with ICU nurses firmly reviewed telemetry strips this morning. I explained to the patient that he needs to remain on metoprolol for SVT prevention. He also needs follow-up as an outpatient with cardiology including a monitoring coordinator as well as referral for OSIEL regarding the noncoronary cusp thickening of his aortic valve. I to him that surgery is handling his pain medications and bowel regimen. Exam Narrative Exam Narrative: Trevon is sitting up in the bed in no acute distress. He has an NG in place draining bilious material. Abdomen remains distended with few scattered bowel sounds. He reports he is still not passing any flatus. Lungs are clear to auscultation heart is regular rate and rhythm Objective Last Vital Signs Temp 36.6 C 10/15/21 11:24 Pulse 86 10/15/21 12:31 Resp 17 10/15/21 11:24 BP 147/87 H 10/15/21 12:31 Pulse Ox 99 10/15/21 11:24 Laboratory Results - last 24 hr 10/15/21 06:32 Sodium 137 Potassium 3.9 Chloride 100 Carbon Dioxide 30.7 Anion Gap 6.3 BUN 25 H Creatinine 0.7 Estimated GFR/1.73 m2 >= 60.00 Glucose 125 H Calcium 8.7 Magnesium 2.2 Troponin I 190 H*
[2021-10-15] MEDS: Prochlorperazine 10 MG/2 ML VIAL 5 MG IVP (16:24)
[2021-10-15] MEDS: FAMOTIDINE 20 MG in Normal Saline 100 ML 400 MG IVPB (18:12)
[2021-10-15] MEDS: Heparin 5,000 UNITS/ML VIAL 5000 UNITS SC (20:48)
[2021-10-16] VITALS (13 sets, daily range): BP systolic 120–159; BP diastolic 70–96; PULSE 72–100; RESP 18–20; TEMP 36–37.2; O2SAT 97–100
[2021-10-16] MEDS: Metoprolol 5 MG/5 ML VIAL IVP ×2 (00:29→08:46)
[2021-10-16] MEDS: Lactated Ringers 1,000 ML 150 ML IV ×2 (00:29→13:20)
[2021-10-16 07:38] LABS: HCT 44.1 % (40.0-50.0); HGB 14.4 g/dL (13.5-17.5); MCH 27.4 pg (27.0-33.0); MCHC 32.7 % (32.0-36.0); MCV 84 fL (80-95); MPV 12.4 fL (8.0-11.0); Platelet Count 184 10^3/uL (130-400); RBC 5.26 10^6/uL (4.36-5.78); RDW 17.3 % (11.8-14.1); RDW-SD 51.3 fL; WBC 6.28 10^3/uL (4.4-10.8)
--- NOTE | 2021-10-16 08:22 | PGE_ITS ---
Date of Service Date of service: 10/16/21 Time of Service: 08:22 Assessment and Plan Assessment and plan (1) Incarcerated left inguinal hernia: Status: Acute Assessment and plan: POD #4 status post left inguinal hernia repair with mesh. We will clamp NG tube and hold all ice chips and clear liquids for 4 hours and check residuals. If less than 100 mL will DC NG tube. Patient has had numerous bowel movements throughout last night and this morning, with good bowel sounds today. Continue NPO; Benzocaine lozenges have been ordered. Continue with pain control Continue with ice Encourage activity out of bed including sitting in the chair and ambulation -pt seen and examined. agree w/ above pt tolerated clears and is hungry. ADAT d/c in am * pt has abnormality of aortic valvue and should have a OSIEL to r/o vegetation. 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 Both patient and nursing staff report patient has had numerous bowel movements through the late night and early childhood associate. Patient states he has felt some improvement. He expresses that he is frustrated that he is not able to eat and is stating if there are no changes he wants to leave AMA. Denies any fevers, chills or night sweats. Exam Const General: cooperative, healthy appearing and comfortable Orientation: alert and oriented x3 Resp Effort & Inspection: normal respiratory effort, no audible wheezes and no cough GI Inspection: normal to inspection Palpation: soft, no guarding and nontender Auscultation: normal bowel sounds Objective Last Vital Signs Temp 36.4 C L 10/16/21 07:49 Pulse 82 10/16/21 07:49 Resp 18 10/16/21 07:49 BP 132/70 10/16/21 07:49 Pulse Ox 99 10/16/21 07:49 Laboratory Results - last 24 hr 10/16/21 06:30 WBC 6.28 RBC 5.26 Hgb 14.4 Hct 44.1 MCV 84 MCH 27.4 MCHC 32.7 RDW 17.3 H Plt Count 184 MPV 12.4 H
[2021-10-16 08:27] LABS: BUN 29 mg/dL (7-18); CREATININE 0.6 mg/dL (0.70-1.30); Calcium 8.7 mg/dL (8.5-10.1); Chloride 99 mmol/L (98-107); Glucose 101 mg/dL (74-106); Potassium 4.2 mmol/L (3.5-5.1); Sodium 135 mmol/L (136-145)
[2021-10-16 08:31] LABS: Troponin I 120 ng/L (<or=60)
[2021-10-16] MEDS: Normal Saline Flush 10 ML SYR IVP ×2 (08:45→12:14)
[2021-10-16] MEDS: Aspirin E.C. 81 MG TABEC PO (08:45)
[2021-10-16] MEDS: ACETAMINOPHEN 1,000 MG/100 ML BTL 400 MG IVPB (08:46)
[2021-10-16 08:47] LABS: Procalcitonin < 0.1 ng/mL
--- NOTE | 2021-10-16 09:02 | PDOC.CMPRO ---
- If Service Date Differs Date of service: 10/16/21 Time of Service: 09:02 Care Management Progress Note S/O: Per provider, Trevon will likely need a Zio Patch and cardiology appointment following discharge. PRASAD spoke with Axel at [facility] and they will accommodate his cardiac monitoring, following discharge. Axel anticipates Trevon [facility]. A: 65 year old male admitted to [facility] on 10/12/21 for Incarcerated left inguinal hernia. P: Anticipate, Trevon will discharge back to [facility] when medically ready. He will transport via [facility] vehicle.
--- NOTE | 2021-10-16 16:16 | W.PM.PROGNOT ---
Date of Service Date of service: 10/16/21 Time of Service: 16:16 Assessment and Plan Assessment and plan (1) Narrow complex tachycardia: Status: Acute Assessment and plan: Tolerating PO. Transition to PO lopressor from IV. Continue tele. Will need a cardiac event recorder/14 day monitor, cardiology referral. (2) Elevated troponin: Status: Acute Assessment and plan: May require outpatient stress test - though likely, this is due to the demand ischemia of the very rapid heart rate of SVT. (3) Incarcerated left inguinal hernia: Status: Acute Assessment and plan: Defer to primary team (4) Aortic valve cusp abnormality: Status: Acute Assessment and plan: No clear signs of endocarditis - no fevers, no leucocytosis, not clinically infected. Procalcitonin negative. Should he become febrile, would check blood cultures, but I do not think that they are indicated at this time. Consider OSIEL as outpatient. (5) HIV (human immunodeficiency virus infection): Assessment and plan: Continue Odefsey. Check CD4 count as well as viral load and genotype for drug resistance. Subjective Subjective Interval history since last seen: Mr Fry states he is hungry and is very interested in food. He denies dizziness, chest pain, shortness of breath, nausea. He had abdominal pain earlier today but it has resolved. He has had several BMs. His NGT was taken out and he has tried clear liquids and is getting advanced to a surgical soft diet tonight. He is very concerned that because his HIV med was held for several days, he will now develop a resistance to the drug. He is interested in getting that tested as well as checking his CD4 count again. Exam Narrative Exam Narrative: General: pleasant male who is walking rapidly in the hallways (with guards accompanying him), A&Ox3, NAD HEENT: EOMI, MMM Heart: RRR, no m/r/g Lungs: CTAB Abdomen: soft, nontender, nondistended Extremities: no edema Objective Last Vital Signs Temp 36.6 C 10/16/21 15:23 Pulse 86 10/16/21 15:23 Resp 18 10/16/21 15:23 BP 152/96 H 10/16/21 15:23 Pulse Ox 100 10/16/21 15:23 Laboratory Results - last 24 hr 10/16/21 10/16/21 10/16/21 06:30 06:30 07:58 WBC 6.28 RBC 5.26 Hgb 14.4 Hct 44.1 MCV 84 MCH 27.4 MCHC 32.7 RDW 17.3 H Plt Count 184 MPV 12.4 H Sodium 135 L Potassium 4.2 Chloride 99 Carbon Dioxide 25.0 Anion Gap 11.0 BUN 29 H Creatinine 0.6 L Estimated GFR/1.73 m2 >= 60.00 Glucose 101 Calcium 8.7 Magnesium 2.0 Troponin I 120 H* Procalcitonin < 0.1
[2021-10-16] MEDS: diphenhydrAMINE 25 MG CAP PO (20:30)
[2021-10-16] MEDS: LORazepam 1 MG TAB PO (20:31)
[2021-10-16] MEDS: traZODone 100 MG TAB PO (23:03)
[2021-10-16] MEDS: Acetaminophen 500 MG TAB 1000 MG PO (23:04)
--- NOTE | 2021-10-16 23:07 | DSE_ITS ---
Date of service: 10/17/21 Time of Service: 09:04 DS: Diagnosis Discharge Diagnosis (1) Incarcerated left inguinal hernia: Status: Acute (2) Cirrhosis of liver: Status: Acute (3) Gallstones: Status: Acute (4) Umbilical hernia: Status: Acute (5) Edentulous: Status: Acute (6) Methadone maintenance therapy patient: Status: Acute (7) HIV (human immunodeficiency virus infection): (8) Atherosclerosis: Status: Acute (9) Smoker unmotivated to quit: Status: Acute (10) History of ETOH abuse: Status: Acute (11) Elevated troponin: Status: Acute Discharge Plan Disposition [facility] Dis[facility] Condition: Serious Discharge Details Reason For Visit: Incarcerated Inguinal Hernia-Left Admit Date/Time: 10/12/21 20:33 Admit Provider: Ashkan Fregoso Attending Provider: Ashkan Fregoso Primary Care Provider: Dave Max [facility] Course Hospital Course: See addendum Home Meds and New Rx's Prescriptions: New acetaminophen 500 mg capsule 1,000 mg PO Q8H PRN PRN (Reason: fever or pain) Qty: 90 3RF ibuprofen 600 mg tablet 600 mg PO Q6H PRN (Reason: fever or pain) Qty: 90 3RF Rx Instructions: Take with food polyethylene glycol 3350 [ClearLax] 17 gram powder in packet 17 g PO DAILY Qty: 14 0RF Continued Odefsey 200-25-25 mg Tablet 1 tab PO DAILY Rx Instructions: must administer with a meal/food Discharge Instructions Additional Instructions: ? ACTIVITY: On the day following surgery, you can be up and about as desired. ? LIFTING: Restrict your lifting to no more than five (5) pounds for twot week following surgery. For the second week after surgery, don?t lift more than ten pounds.? We will decide when you are done with restrictions , at your follow-up appointment.?? ? DIET: There are no dietary restrictions following surgery. However, you may want to start with small amounts of liquids to avoid nausea the day of surgery. ? INCISION CARE: You will notice purple skin glue closing the incision.? Do not peel this off- it will wear off on its own.? After 24 hours you may shower. The dressing may be replaced for comfort, but is not necessary. ?An ice bag may be applied to the incision for 72 hours following surgery. ? SIGNS OF INFECTION: It is not unusual to have some black and blue discoloration of the skin around the incision, but also scrotum and penis.? ?It will slowly disappear. If you have any increased redness, drainage, fever (above 100 degrees), please contact your doctor for an examination. ? DISCOMFORT: You may expect to have some mild discomfort at the incision sight. If severe pain develops you should contact your doctor for further instructions. ? DRIVING: NO driving for three (3) days after surgery, or if you are still taking narcotic pain medication.? ? MEDICATIONS: Alternate Tylenol 1000mg by mouth every 8 hours and Ibuprofen 600mg every 6 hours. ?Make sure you take ibuprofen with food and not on an empty stomach. ?Take the Tylenol and ibuprofen continuously for the first 72hrs- not just when you have pain.? ? Use ICE!?? Twenty minutes on, and then off. Make sure you are moving your bowels daily. If not, take Miralax, milk of magnesia or magnesium citrate.?? Anesthesia makes you very constipated.? Take a dose of milk of magnesia the morning after surgery. ? REPORT: Unusual swelling, severe pain, unresolved nausea, signs of infection, or difficulty in urination to your surgeon. Follow up in clinic with Dr. Wetzel in 1 weeks.? [phone] Stand Alone Forms: Nursing Discharge Form Activity:: See above Equipment/Supplies:: No Equipment Needed Diet:: As Tolerated Discharge Orders Discharge Orders: Discharge Order (Routine); Ordered 10/17/21 Ordered By: Mel Villar DS: Summary Time Spent with Patient providing and/or coordinating discharge services: Less than 30 minutes Status at Discharge Functional status at discharge: independent ambulation Overall status at discharge: patient is progressing back to baseline Mental Status: mental status grossly normal Speech and Movement: speech and movement normal Mood: congruent mood Affect: normal affect Exam Psych Mental Status: mental status grossly normal Speech and Movement: speech and movement normal Mood: congruent mood Affect: normal affect DS: Data Vitals/I&O Vitals and I&O: Vital Signs Temperature 37.2 C 10/16/21 20:08 Temperature Source Tympanic 10/16/21 20:08 Pulse 83 10/16/21 20:08 Pulse Rhythm Regular 10/16/21 22:02 Respiratory Rate 18 06/23/22 20:08 Respiratory Effort Non-Labored 10/16/21 22:02 Respiratory Depth Normal 10/16/21 22:02 Respiratory Pattern Normal 10/16/21 22:02 Blood Pressure 152/96 H 10/16/21 15:23 Blood Pressure Position Sitting 10/12/21 14:10 Pulse Oximetry 100 10/16/21 20:08 Respiratory End-tidal CO2 21 10/12/21 23:13 Oxygen Delivery Method Room Air 10/16/21 20:08 Oxygen Flow Rate 0 10/16/21 20:08 Pain Level 4 10/16/21 23:04 Comment 10/15/21 18:18 Intake & Output 10/15/21 10/16/21 10/16/21 23:59 11:59 23:59 Intake Total 1422.000 / 2522.000 1050 / 2415 1365 / 2415 Output Total 2450 / 4100 1550 / 1550 Balance -1028.000 / -1578.000 -500 / 865 1365 / 865 Intake: IV 1322.000 / 2422.000 1000 / 1585 585 / 1585 Oral 100 / 100 50 / 830 780 / 830 Output: Gastric Drainage 2250 / 3250 1350 / 1350 Left Nare 2250 / 3250 1350 / 1350 Urine 200 / 200 Emesis 200 / 600 Other: Urine Color Yellow Urine Appearance Clear Clear Clear Urine Odor None Comment Patient reports ability to void at this time. no hat, pT voided in toilet. patient voiding independently Stool Size Small Small Stool Characteristics Liquid Mucoid Emesis Description Fecal Voiding Methods Toilet Data Completed and Pending Labs on day of discharge: Labs from last 24 hours 10/16/21 10/16/21 10/16/21 07:58 06:30 06:30 WBC 6.28 RBC 5.26 Hgb 14.4 Hct 44.1 MCV 84 MCH 27.4 MCHC 32.7 RDW 17.3 H Plt Count 184 MPV 12.4 H Sodium 135 L Potassium 4.2 Chloride 99 Carbon Dioxide 25.0 Anion Gap 11.0 BUN 29 H Creatinine 0.6 L Estimated GFR/1.73 m2 >= 60.00 Glucose 101 Calcium 8.7 Magnesium 2.0 Troponin I 120 H* Procalcitonin < 0.1 PFSH All Active Problems (Updated 10/13/21 @ 19:47 by Fernando Pappas MD) History of intravenous drug abuse (Acute) Aortic valve cusp abnormality (Acute) Narrow complex tachycardia (Acute) Elevated troponin (Acute) History of ETOH abuse (Acute) Smoker unmotivated to quit (Acute) Atherosclerosis (Acute) Methadone maintenance therapy patient (Acute) Edentulous (Acute) Umbilical hernia (Acute) Gallstones (Acute) Cirrhosis of liver (Acute) Incarcerated left inguinal hernia (Acute) Medical History HIV (human immunodeficiency virus infection) Social History Smoking/Tobacco Use Status: Current every day Tobacco Type: cigarettes Smoking risk assessment performed?: Yes Alcohol Intake: former Drug use: Never Substance use type: does not use
[2021-10-17 03:00] VITALS: BP 146/67; PULSE 96; RESP 18; TEMP 36.5; O2SAT 98
[2021-10-17 07:00] VITALS: PULSE 103
[2021-10-17 07:43] LABS: Abs Immature Grans 0.01 10^3/uL (0.0-0.06); Absolute Basophil Count 0.01 10^3/uL (0.0-0.2); Absolute Eosinophil Count 0.11 10^3/uL (0.0-0.7); Absolute Lymphocyte Count 1.62 10^3/uL (1.2-3.4); Absolute Monocyte Count 0.68 10^3/uL (0.1-0.8); Absolute Neutrophil Count 3.14 10^3/uL (1.2-6.7); Basophils % 0.2; HCT 41.4 % (40.0-50.0); HGB 13.8 g/dL (13.5-17.5); Immature Grans % 0.2; Lymphocytes % 29.1; MCH 27.6 pg (27.0-33.0); MCHC 33.3 % (32.0-36.0); MCV 83 fL (80-95); MPV 11.6 fL (8.0-11.0); Monocytes % 12.2; Neutrophils % 56.3; Platelet Count 202 10^3/uL (130-400); RDW 16.4 % (11.8-14.1); RDW-SD 49.1 fL; WBC 5.57 10^3/uL (4.4-10.8)
[2021-10-17 07:53] LABS: Anion Gap 7.1 mmol/L (3-11); BUN 16 mg/dL (7-18); CO2 27.9 mmol/L (21.0-32.0); CREATININE 0.7 mg/dL (0.70-1.30); Calcium 8.7 mg/dL (8.5-10.1); Chloride 103 mmol/L (98-107); Glucose 148 mg/dL (74-106); Potassium 3.7 mmol/L (3.5-5.1); Sodium 138 mmol/L (136-145)
[2021-10-17] MEDS: Polyethylene Glycol 3350 17 GM PACKET PO (07:59)
[2021-10-17] MEDS: Famotidine 20 MG TAB PO (07:59)
[2021-10-17] MEDS: Aspirin E.C. 81 MG TABEC PO (07:59)
[2021-10-17] MEDS: Metoprolol 25 MG TAB PO (07:59)
[2021-10-17 08:04] LABS: Magnesium 1.8 mg/dL (1.8-2.4)
[2021-10-17 08:11] LABS: Troponin I 105 ng/L (<or=60)
[2021-10-17 08:19] VITALS: BP 131/67; PULSE 106; RESP 16; TEMP 36.2; O2SAT 100
[2021-10-17 08:48] LABS: Lab Add On Test DONE
--- NOTE | 2021-10-17 09:09 | W.PM.PROGNOT ---
Date of Service Date of service: 10/17/21 Time of Service: 09:09 Assessment and Plan Assessment and plan (1) History of intravenous drug abuse: Status: Acute Assessment and plan: s/p anterior open hernia repair w/ mesh see d/c orders (2) Aortic valve cusp abnormality: Status: Acute (3) Narrow complex tachycardia: Status: Acute (4) Elevated troponin: Status: Acute (5) History of ETOH abuse: Status: Acute (6) Smoker unmotivated to quit: Status: Acute (7) Atherosclerosis: Status: Acute (8) Gallstones: Status: Acute (9) Cirrhosis of liver: Status: Acute (10) Incarcerated left inguinal hernia: Status: Acute Subjective Subjective Interval history since last seen: Pt is doing well. no headaches. No CP or SOB. no productive cough. no dysuria. no leg pain or swelling. Exam Narrative Exam Narrative: H: sinus R/R/R L: cta b/l abdom: soft. incision is c/d/i. good BS LE: no edema/swelling/pain Objective Last Vital Signs Temp 36.2 C L 10/17/21 08:19 Pulse 106 H 10/17/21 08:19 Resp 16 10/17/21 08:19 BP 131/67 10/17/21 08:19 Pulse Ox 100 10/17/21 08:19 Laboratory Results - last 24 hr 10/17/21 10/17/21 10/17/21 07:10 07:10 07:10 WBC 5.57 RBC 5.00 Hgb 13.8 Hct 41.4 MCV 83 MCH 27.6 MCHC 33.3 RDW 16.4 H Plt Count 202 MPV 11.6 H Immature Gran % 0.2 Neutrophils % 56.3 Lymphocytes % 29.1 Monocytes % 12.2 Eosinophils % 2.0 Basophils % 0.2 Nucleated RBC % 0.0 Absolute Neutrophils 3.14 Absolute Lymphocytes 1.62 Absolute Monocytes 0.68 Absolute Eosinophils 0.11 Absolute Basophils 0.01 Sodium 138 Potassium 3.7 Chloride 103 Carbon Dioxide 27.9 Anion Gap 7.1 BUN 16 Creatinine 0.7 Estimated GFR/1.73 m2 >= 60.00 Glucose 148 H Calcium 8.7 Magnesium 1.8 Troponin I 105 H* Add-On Test Request 10/17/21 07:25 WBC RBC Hgb Hct MCV MCH MCHC RDW Plt Count MPV Immature Gran % Neutrophils % Lymphocytes % Monocytes % Eosinophils % Basophils % Nucleated RBC % Absolute Neutrophils Absolute Lymphocytes Absolute Monocytes Absolute Eosinophils Absolute Basophils Sodium Potassium Chloride Carbon Dioxide Anion Gap BUN Creatinine Estimated GFR/1.73 m2 Glucose Calcium Magnesium Troponin I Add-On Test Request DONE
--- NOTE | 2021-10-17 09:10 | W.PM.DS.N ---
DS: Diagnosis Discharge Diagnosis (1) History of intravenous drug abuse: Status: Acute (2) Aortic valve cusp abnormality: Status: Acute (3) Narrow complex tachycardia: Status: Acute (4) Elevated troponin: Status: Acute (5) History of ETOH abuse: Status: Acute (6) Smoker unmotivated to quit: Status: Acute (7) Atherosclerosis: Status: Acute (8) Gallstones: Status: Acute (9) Cirrhosis of liver: Status: Acute (10) Incarcerated left inguinal hernia: Status: Acute Discharge Plan Disposition [facility] Condition: Serious Discharge Details Reason For Visit: Incarcerated Inguinal Hernia-Left Admit Date/Time: 10/12/21 20:33 Admit Provider: Ashkan Fregoso Attending Provider: Ashkan Fregoso Primary Care Provider: Dave Max [facility] Hospital Course Hospital Course: See addendum Home Meds and New Rx's Prescriptions: New acetaminophen 500 mg capsule 1,000 mg PO Q8H PRN PRN (Reason: fever or pain) Qty: 90 3RF ibuprofen 600 mg tablet 600 mg PO Q6H PRN (Reason: fever or pain) Qty: 90 3RF Rx Instructions: Take with food polyethylene glycol 3350 [ClearLax] 17 gram powder in packet 17 g PO DAILY Qty: 14 0RF Continued Odefsey 200-25-25 mg Tablet 1 tab PO DAILY Rx Instructions: must administer with a meal/food Discharge Instructions Additional Instructions: ? ACTIVITY: On the day following surgery, you can be up and about as desired. ? LIFTING: Restrict your lifting to no more than five (5) pounds for twot week following surgery. For the second week after surgery, don?t lift more than ten pounds.? We will decide when you are done with restrictions , at your follow-up appointment.?? ? DIET: There are no dietary restrictions following surgery. However, you may want to start with small amounts of liquids to avoid nausea the day of surgery. ? INCISION CARE: You will notice purple skin glue closing the incision.? Do not peel this off- it will wear off on its own.? After 24 hours you may shower. The dressing may be replaced for comfort, but is not necessary. ?An ice bag may be applied to the incision for 72 hours following surgery. ? SIGNS OF INFECTION: It is not unusual to have some black and blue discoloration of the skin around the incision, but also scrotum and penis.? ?It will slowly disappear. If you have any increased redness, drainage, fever (above 100 degrees), please contact your doctor for an examination. ? DISCOMFORT: You may expect to have some mild discomfort at the incision sight. If severe pain develops you should contact your doctor for further instructions. ? DRIVING: NO driving for three (3) days after surgery, or if you are still taking narcotic pain medication.? ? MEDICATIONS: Alternate Tylenol 1000mg by mouth every 8 hours and Ibuprofen 600mg every 6 hours. ?Make sure you take ibuprofen with food and not on an empty stomach. ?Take the Tylenol and ibuprofen continuously for the first 72hrs- not just when you have pain.? ? Use ICE!?? Twenty minutes on, and then off. Make sure you are moving your bowels daily. If not, take Miralax, milk of magnesia or magnesium citrate.?? Anesthesia makes you very constipated.? Take a dose of milk of magnesia the morning after surgery. -There is a possible growth/vegetation on the aortic valve. You should f/u w/ cardiolgy for a OSIEL. ? REPORT: Unusual swelling, severe pain, unresolved nausea, signs of infection, or difficulty in urination to your surgeon. Follow up in clinic with Dr. Wetzel in 1 weeks.? [phone] Stand Alone Forms: Nursing Discharge Form Activity:: See above Equipment/Supplies:: No Equipment Needed Diet:: As Tolerated Discharge Orders Discharge Orders: Discharge Order (Routine); Ordered 10/17/21 Ordered By: Mel Villar DS: Summary Time Spent with Patient providing and/or coordinating discharge services: Less than 30 minutes Status at Discharge Functional status at discharge: independent ambulation Overall status at discharge: patient is progressing back to baseline Mental Status: mental status grossly normal Speech and Movement: speech and movement normal Mood: congruent mood Affect: normal affect Exam Psych Mental Status: mental status grossly normal Speech and Movement: speech and movement normal Mood: congruent mood Affect: normal affect DS: Data Vitals/I&O Vitals and I&O: Vital Signs Temperature 36.2 C L 10/17/21 08:19 Temperature Source Tympanic 10/17/21 08:19 Pulse 106 H 10/17/21 08:19 Pulse Rhythm Regular 10/16/21 22:02 Respiratory Rate 16 10/17/21 08:19 Respiratory Effort Non-Labored 10/16/21 22:02 Respiratory Depth Normal 10/16/21 22:02 Respiratory Pattern Normal 10/16/21 22:02 Blood Pressure 131/67 10/17/21 08:19 Blood Pressure Position Sitting 10/12/21 14:10 Pulse Oximetry 100 10/17/21 08:19 Respiratory End-tidal CO2 21 10/12/21 23:13 Oxygen Delivery Method Room Air 10/17/21 08:19 Oxygen Flow Rate 0 10/17/21 08:19 Pain Level 5 10/17/21 08:19 Comment 10/15/21 18:18 Intake & Output 10/16/21 10/16/21 10/17/21 11:59 23:59 11:59 Intake Total 1050 / 2535 1485 / 2535 120 / 120 Output Total 1550 / 1550 Balance -500 / 985 1485 / 985 120 / 120 Intake: IV 1000 / 1585 585 / 1585 Oral 50 / 950 900 / 950 120 / 120 Output: Gastric Drainage 1350 / 1350 Left Nare 1350 / 1350 Urine 200 / 200 Other: Urine Color Yellow Urine Appearance Clear Clear Urine Odor None Comment no hat, pT voided in toilet. patient voiding independently Stool Size Small Small Stool Characteristics Liquid Mucoid Voiding Methods Toilet Data Completed and Pending Labs on day of discharge: Labs from last 24 hours 10/17/21 10/17/21 10/17/21 07:25 07:25 07:10 WBC 5.57 RBC 5.00 Hgb 13.8 Hct 41.4 MCV 83 MCH 27.6 MCHC 33.3 RDW 16.4 H Plt Count 202 MPV 11.6 H Immature Gran % 0.2 Neutrophils % 56.3 Lymphocytes % 29.1 Monocytes % 12.2 Eosinophils % 2.0 Basophils % 0.2 Nucleated RBC % 0.0 Absolute Neutrophils 3.14 Absolute Lymphocytes 1.62 Absolute Monocytes 0.68 Absolute Eosinophils 0.11 Absolute Basophils 0.01 Sodium Potassium Chloride Carbon Dioxide Anion Gap BUN Creatinine Estimated GFR/1.73 m2 Glucose Hemoglobin A1c Pending Calcium Magnesium Troponin I % CD3 Cells Absolute CD3 Count % CD4 Cells Absolute CD4 Count CD4/CD8 Ratio % CD8 Cells Absolute CD8 Count HIV-1 Genotyping HIV Zidovudine Resist HIV Stavudine Resist HIV Lamivudine Resist HIV Didanosine Resist HIV Tenofovir Resist HIV Abacavir Resist Emtricitabine Resist HIV Doravirine Resist HIV Efavirenz Resist HIV Nevirapine Resist HIV Etravirine Resist HIV Nucleos RT Inhibit Non-Nucl RT Inhibitors HIV Protease Gene Mutat Fosampren w Ritonivir Atazanavir w Ritonavir Indinavir w Ritonavir HIV Nelfinavir Resist Lopinavir w Ritonavir HIV Rilpivirine Resist Saquinavir w Ritonavir Tipranavir w Ritonavir Darunavir w Ritonavir Add-On Test Request DONE 10/17/21 10/17/21 10/17/21 07:10 07:10 07:10 WBC RBC Hgb Hct MCV MCH MCHC RDW Plt Count MPV Immature Gran % Neutrophils % Lymphocytes % Monocytes % Eosinophils % Basophils % Nucleated RBC % Absolute Neutrophils Absolute Lymphocytes Absolute Monocytes Absolute Eosinophils Absolute Basophils Sodium 138 Potassium 3.7 Chloride 103 Carbon Dioxide 27.9 Anion Gap 7.1 BUN 16 Creatinine 0.7 Estimated GFR/1.73 m2 >= 60.00 Glucose 148 H Hemoglobin A1c Calcium 8.7 Magnesium 1.8 Troponin I 105 H* % CD3 Cells Pending Absolute CD3 Count Pending % CD4 Cells Pending Absolute CD4 Count Pending CD4/CD8 Ratio Pending % CD8 Cells Pending Absolute CD8 Count Pending HIV-1 Genotyping Pending HIV Zidovudine Resist Pending HIV Stavudine Resist Pending HIV Lamivudine Resist Pending HIV Didanosine Resist Pending HIV Tenofovir Resist Pending HIV Abacavir Resist Pending Emtricitabine Resist Pending HIV Doravirine Resist Pending HIV Efavirenz Resist Pending HIV Nevirapine Resist Pending HIV Etravirine Resist Pending HIV Nucleos RT Inhibit Pending Non-Nucl RT Inhibitors Pending HIV Protease Gene Mutat Pending Fosampren w Ritonivir Pending Atazanavir w Ritonavir Pending Indinavir w Ritonavir Pending HIV Nelfinavir Resist Pending Lopinavir w Ritonavir Pending HIV Rilpivirine Resist Pending Saquinavir w Ritonavir Pending Tipranavir w Ritonavir Pending Darunavir w Ritonavir Pending Add-On Test Request PFSH All Active Problems (Updated 10/13/21 @ 19:47 by Fernando Pappas MD) History of intravenous drug abuse (Acute) Aortic valve cusp abnormality (Acute) Narrow complex tachycardia (Acute) Elevated troponin (Acute) History of ETOH abuse (Acute) Smoker unmotivated to quit (Acute) Atherosclerosis (Acute) Methadone maintenance therapy patient (Acute) Edentulous (Acute) Umbilical hernia (Acute) Gallstones (Acute) Cirrhosis of liver (Acute) Incarcerated left inguinal hernia (Acute) Medical History HIV (human immunodeficiency virus infection) Social History Smoking/Tobacco Use Status: Current every day Tobacco Type: cigarettes Smoking risk assessment performed?: Yes Alcohol Intake: former Drug use: Never Substance use type: does not use
--- NOTE | 2021-10-17 09:18 | CMDISCH_ITS ---
- If Service Date Differs Date of service: 10/17/21 Time of Service: 09:18 LACE Index Scoring Tool - Questions: Length of Stay (in days): 4 - 6 Acuity (Admit via E.D.?): Yes E.D. Visits: 1 - Answers: Total Score: 8 Risk of Readmission: Low Risk Care Management Discharge Reason for Hospitalization: Incarcerated left inguinal hernia Discharge Plan: Trevon is discharged back to the [facility] of [facility]. Per Axel at [facility] Trevon [facility] He will be followed by their facility MD, Dr. Salvador Daly. Trevon will need a Cardiology follow up appointment and outpt OSIEL. He will also need an outpatient Review Trainer. CM reviewed out patient plan of care with Axel. Patient/Family Education Needs: Review discharge instructions, limitations, medications and plan to follow up with community providers. ask me three.
--- NOTE | 2021-10-17 10:06 | W.CARDCONSUL ---
Date of service: 10/17/21 Time of Service: 10:06 Assessment and Plan Assessment and plan (1) Aortic valve cusp abnormality: Status: Acute (2) Narrow complex tachycardia: Status: Acute History of Present Illness Narrative: Cardiac evaluation is requested in this patient who has been hospitalized for about a week. He was admitted with an incarcerated inguinal hernia. The chart was reviewed. The patient was not interviewed or examined. Rhythm strips were not reviewed. EKGs and echocardiogram were reviewed personally Patient has SVT for which he has been started on very low-dose metoprolol. His echocardiogram shows an abnormality of an aortic valve cusp, normal LV function At present my recommendations would consist of uptitrating his beta-nova to get resting heart rate approximateky 80 Agree with event monitor to evaluate this non-life threatening dysrhythmia Outpatient cardiology appointment I suspect OSI[facility] is only available at [facility] or [facility], [facility] may do these studies PFSH All Active Problems (Updated 10/13/21 @ 19:47 by Fernando Pappas MD) History of intravenous drug abuse (Acute) Aortic valve cusp abnormality (Acute) Narrow complex tachycardia (Acute) Elevated troponin (Acute) History of ETOH abuse (Acute) Smoker unmotivated to quit (Acute) Atherosclerosis (Acute) Methadone maintenance therapy patient (Acute) Edentulous (Acute) Umbilical hernia (Acute) Gallstones (Acute) Cirrhosis of liver (Acute) Incarcerated left inguinal hernia (Acute) Medical History HIV (human immunodeficiency virus infection) Social History Smoking/Tobacco Use Status: Current every day Tobacco Type: cigarettes Smoking risk assessment performed?: Yes Alcohol Intake: former Drug use: Never Substance use type: does not use Results Last Vital Signs Temp 36.2 C L 10/17/21 08:19 Pulse 106 H 10/17/21 08:19 Resp 16 10/17/21 08:19 BP 131/67 10/17/21 08:19 Pulse Ox 100 10/17/21 08:19 Labs Result diagrams: 10/17/21 07:10 10/17/21 07:10 Labs: Laboratory Results - last 24 hr 10/17/21 10/17/21 10/17/21 07:10 07:10 07:10 WBC 5.57 RBC 5.00 Hgb 13.8 Hct 41.4 MCV 83 MCH 27.6 MCHC 33.3 RDW 16.4 H Plt Count 202 MPV 11.6 H Immature Gran % 0.2 Neutrophils % 56.3 Lymphocytes % 29.1 Monocytes % 12.2 Eosinophils % 2.0 Basophils % 0.2 Nucleated RBC % 0.0 Absolute Neutrophils 3.14 Absolute Lymphocytes 1.62 Absolute Monocytes 0.68 Absolute Eosinophils 0.11 Absolute Basophils 0.01 Sodium 138 Potassium 3.7 Chloride 103 Carbon Dioxide 27.9 Anion Gap 7.1 BUN 16 Creatinine 0.7 Estimated GFR/1.73 m2 >= 60.00 Glucose 148 H Hemoglobin A1c Calcium 8.7 Magnesium 1.8 Troponin I 105 H* Add-On Test Request 10/17/21 10/17/21 07:25 07:25 WBC RBC Hgb Hct MCV MCH MCHC RDW Plt Count MPV Immature Gran % Neutrophils % Lymphocytes % Monocytes % Eosinophils % Basophils % Nucleated RBC % Absolute Neutrophils Absolute Lymphocytes Absolute Monocytes Absolute Eosinophils Absolute Basophils Sodium Potassium Chloride Carbon Dioxide Anion Gap BUN Creatinine Estimated GFR/1.73 m2 Glucose Hemoglobin A1c 6.0 H Calcium Magnesium Troponin I Add-On Test Request DONE
[2021-10-17 11:06] VITALS: BP 159/87; PULSE 72; RESP 18; TEMP 36.6; O2SAT 99
[2021-10-17 12:05] VITALS: PULSE 73
[2021-10-20 09:55] LABS: 4/8 Ratio 0.11 (>=0.90); Absolute CD3 1057 Cells/uL (840-2,669); Absolute CD8 947 Cells/uL (154-1,097); CD3 68 % (56-84); CD4 6 % (31-64); CD8 60 % (9-39)
== END 2021-10-17 13:00 | disposition home or self-care (01) ==
LOC: ER 21:15 → DSU 23:40 → MS 10-13 00:10 → DSU 10-13 11:00 → ER 10-13 11:00 → MS 10-13 11:00
PROVIDERS: Internal Medicine; Physician Assistant; Registered Nurse Emergency; Surgery; Admitting Provider Student in an Organized Health Care Education/Training Program; Emergency Provider Student in an Organized Health Care Education/Training Program; Visit Provider Student in an Organized Health Care Education/Training Program
PROC: 0YU60JZ Supplement Left Inguinal Region with Synthetic Substitute, Open Approach (ICD-10-PCS; CPT 49507; principal; 2021-10-12 20:50)
DX: K40.30 Unilateral inguinal hernia, with obstruction, without gangrene, not specified as recurrent (principal); K74.60 Unspecified cirrhosis of liver; F19.11 Other psychoactive substance abuse, in remission; F17.210 Nicotine dependence, cigarettes, uncomplicated; F11.20 Opioid dependence, uncomplicated; K80.20 Calculus of gallbladder without cholecystitis without obstruction; K42.9 Umbilical hernia without obstruction or gangrene; F10.11 Alcohol abuse, in remission; I70.90 Unspecified atherosclerosis; K08.109 Complete loss of teeth, unspecified cause, unspecified class; B20 Human immunodeficiency virus [HIV] disease; I35.8 Other nonrheumatic aortic valve disorders; I47.1 Supraventricular tachycardia; R74.8 Abnormal levels of other serum enzymes; K91.89 Other postprocedural complications and disorders of digestive system; K56.7 Ileus, unspecified
CPT/HCPCS: 49507; 36415; 76942; 80048; 80053; 84145; 85027; 87635; 96361; 96365; 96366; 96367; 96372; 96374; 96375; 96376; 99285; 74018; 74019; 74176; 74177; 81003; 83036; 83605; 83735; 84443; 84484; 85025; 86359; 86360; 87901; 93005; 93010; 93306; 99220; 99224; 99225; C1781; G0378; J0131; J0690; J0780; J1100; J1170; J1644; J1885; J2060; J2270; J2405; J2704; J3010; J3490